=== PATIENT | male | born 1960 | race American Indian/Alaskan Native ===

== ENCOUNTER 2016-09-12 22:13 | Emergency (ER) | payer MEDICAID ==
[2016-09-12] MEDS ORDERED: TYLENOL PO ONE (22:25)
[2016-09-13 06:06] VITALS: BP 155/103
--- NOTE | 2016-09-13 08:10 | Emergency Department Report ---
ED General Adult HPI - General Chief complaint: Extremity Injury, Lower Stated complaint: GOUT Time Seen by Provider: 09/13/16 08:04 Source: patient Mode of arrival: Ambulatory Limitations: No Limitations - History of Present Illness Initial comments: 56 year old male with hx of gout presents with right elbow, wrist, left ankle and toe pain and swelling with fever that started alst night of 102.5. states relief with the tylenol given. states that this feels like regular gout flare up. states joints are swollen, red, tender. Severity scale (0 -10): 5 - Related Data Home Medications Medication Instructions Recorded Confirmed Last Taken Tapentadol HCl [Nucynta] 75 mg PO Q6H PRN 09/26/14 09/26/14 09/25/14 Previous Rx's Medication Instructions Recorded Last Taken Type Promethazine [Phenergan] 25 mg PO Q6H PRN #20 tablet 05/12/14 Unknown Rx Tapentadol HCl [Nucynta] 75 mg PO Q4-6H PRN #35 tab 09/26/14 Unknown Rx Indomethacin Sr (Nf) [Indocin Sr 75 mg PO Q12HR #60 capsule.er 11/15/14 Unknown Rx (Nf)] Colchicine 0.6 mg PO QDAY #30 capsule 01/30/15 Unknown Rx Colchicine [Colcrys] 0.6 mg PO DAILY #30 tablet 03/20/15 Unknown Rx HYDROcodone/APAP 10-325 [[place] 1 each PO Q6HR PRN #15 tablet 03/20/15 Unknown Rx 10-325 mg TAB] Losartan [Cozaar] 50 mg PO QDAY #30 tablet 07/30/15 Unknown Rx Prednisone [predniSONE 5 mg (6-Day 5 mg PO .TAPER #1 tab.ds.pk 07/30/15 Unknown Rx Pack, 21 Tabs)] Colchicine 0.6 mg PO BID #20 capsule 12/23/15 Unknown Rx methylPREDNISolone [Medrol] 4 mg PO DAILY #1 tab.ds.pk 12/23/15 Unknown Rx Colchicine/Probenecid 1 each PO BID #14 tab 06/09/16 Unknown Rx [Probenecid-Colchicine Tab] Ibuprofen [Motrin 800 MG tab] 800 mg PO Q8HR PRN #21 tablet 06/09/16 Unknown Rx Indomethacin [Indocin] 25 mg PO Q8H #90 capsule 06/09/16 Unknown Rx Losartan [Cozaar] 50 mg PO QDAY #30 tablet 06/09/16 Unknown Rx Prednisone [predniSONE 10 mg 10 mg PO .TAPER #1 tab.ds.pk 06/09/16 Unknown Rx (6-Day Pack, 21 Tabs)] Zolpidem [Ambien] 5 mg PO QHS PRN #20 tablet 06/09/16 Unknown Rx Colchicine 0.6 mg PO QDAY #30 tablet 09/13/16 Unknown Rx HYDROcodone/APAP 5-325 [[place] 1 each PO Q6HR PRN #20 tablet 09/13/16 Unknown Rx 5/325] Prednisone [predniSONE 10 mg 10 mg PO .TAPER #1 tab.ds.pk 09/13/16 Unknown Rx (6-Day Pack, 21 Tabs)] Allergies Allergy/AdvReac Type Severity Reaction Status Date / Time No Known Allergies Allergy Verified 06/09/16 07:22 ED Review of Systems ROS: Stated complaint: GOUT Other details as noted in HPI Constitutional: fever. denies: chills Eyes: denies: eye pain, eye discharge, vision change ENT: denies: ear pain, throat pain Respiratory: denies: cough, shortness of breath, wheezing Cardiovascular: denies: chest pain, palpitations Endocrine: no symptoms reported Gastrointestinal: denies: abdominal pain, nausea, diarrhea Genitourinary: denies: urgency, dysuria Musculoskeletal: joint swelling, arthralgia. denies: back pain Skin: denies: rash, lesions Neurological: denies: headache, weakness, paresthesias Psychiatric: denies: anxiety, depression Hematological/Lymphatic: denies: easy bleeding, easy bruising ED Past Medical Hx - Past Medical History Previous Medical History?: Yes Hx Hypertension: Yes Hx of Cancer: Yes (prostate) Hx Arthritis: Yes (gout) Additional medical history: "sleep disorder" - Surgical History Past Surgical History?: Yes Additional Surgical History: right acl repair -1989. radiation / seed implants - Social History Smoking Status: Never Smoker Substance Use Type: Prescribed - Medications Home Medications: Home Medications Medication Instructions Recorded Confirmed Last Taken Type Promethazine [Phenergan] 25 mg PO Q6H PRN #20 tablet 05/12/14 09/26/14 Unknown Rx Tapentadol HCl [Nucynta] 75 mg PO Q4-6H PRN #35 tab 09/26/14 Unknown Rx Tapentadol HCl [Nucynta] 75 mg PO Q6H PRN 09/26/14 09/26/14 09/25/14 History Indomethacin Sr (Nf) [Indocin Sr 75 mg PO Q12HR #60 capsule.er 11/15/14 Unknown Rx (Nf)] Colchicine 0.6 mg PO QDAY #30 capsule 01/30/15 Unknown Rx Colchicine [Colcrys] 0.6 mg PO DAILY #30 tablet 03/20/15 Unknown Rx HYDROcodone/APAP 10-325 [[place] 1 each PO Q6HR PRN #15 tablet 03/20/15 Unknown Rx 10-325 mg TAB] Losartan [Cozaar] 50 mg PO QDAY #30 tablet 07/30/15 Unknown Rx Prednisone [predniSONE 5 mg (6-Day 5 mg PO .TAPER #1 tab.ds.pk 07/30/15 Unknown Rx Pack, 21 Tabs)] Colchicine 0.6 mg PO BID #20 capsule 12/23/15 Unknown Rx methylPREDNISolone [Medrol] 4 mg PO DAILY #1 tab.ds.pk 12/23/15 Unknown Rx Colchicine/Probenecid 1 each PO BID #14 tab 06/09/16 Unknown Rx [Probenecid-Colchicine Tab] Ibuprofen [Motrin 800 MG tab] 800 mg PO Q8HR PRN #21 tablet 06/09/16 Unknown Rx Indomethacin [Indocin] 25 mg PO Q8H #90 capsule 06/09/16 Unknown Rx Losartan [Cozaar] 50 mg PO QDAY #30 tablet 06/09/16 Unknown Rx Prednisone [predniSONE 10 mg 10 mg PO .TAPER #1 tab.ds.pk 06/09/16 Unknown Rx (6-Day Pack, 21 Tabs)] Zolpidem [Ambien] 5 mg PO QHS PRN #20 tablet 06/09/16 Unknown Rx Colchicine 0.6 mg PO QDAY #30 tablet 09/13/16 Unknown Rx HYDROcodone/APAP 5-325 [[place] 1 each PO Q6HR PRN #20 tablet 09/13/16 Unknown Rx 5/325] Prednisone [predniSONE 10 mg 10 mg PO .TAPER #1 tab.ds.pk 09/13/16 Unknown Rx (6-Day Pack, 21 Tabs)] ED Physical Exam - General Limitations: No Limitations General appearance: alert, in no apparent distress - Head Head exam: Present: atraumatic, normocephalic - Eye Eye exam: Present: normal appearance - ENT ENT exam: Present: mucous membranes moist - Neck Neck exam: Present: normal inspection - Respiratory Respiratory exam: Present: normal lung sounds bilaterally. Absent: respiratory distress - Cardiovascular Cardiovascular Exam: Present: regular rate, normal rhythm. Absent: systolic murmur, diastolic murmur, rubs, gallop - GI/Abdominal GI/Abdominal exam: Present: soft, normal bowel sounds - Rectal Rectal exam: Present: deferred - Extremities Exam Extremities exam: Present: normal inspection, other (right wrist, elbow. left ankle and toe are red, swollen, TTP. full rom.) - Back Exam Back exam: Present: normal inspection - Neurological Exam Neurological exam: Present: alert, oriented X3 - Psychiatric Psychiatric exam: Present: normal affect, normal mood - Skin Skin exam: Present: warm, dry, intact, normal color. Absent: rash ED Course Vital Signs 09/12/16 09/13/16 09/13/16 22:21 00:59 06:05 Temperature 102.3 F H 99.2 F 99.0 F Pulse Rate 125 H 97 H 99 H Respiratory 20 18 120 H Rate Blood Pressure 146/104 Blood Pressure 146/104 138/99 155/103 [Left] O2 Sat by Pulse 99 99 100 Oximetry 09/13/16 08:37 Temperature Pulse Rate Respiratory 20 Rate Blood Pressure Blood Pressure [Left] O2 Sat by Pulse Oximetry ED Medical Decision Making - Lab Data Result diagrams: 09/13/16 08:13 09/13/16 08:13 Vital Signs 09/12/16 09/13/16 09/13/16 22:21 00:59 06:05 Temperature 102.3 F H 99.2 F 99.0 F Pulse Rate 125 H 97 H 99 H Respiratory 20 18 120 H Rate Blood Pressure 146/104 Blood Pressure 146/104 138/99 155/103 [Left] O2 Sat by Pulse 99 99 100 Oximetry 09/13/16 08:37 Temperature Pulse Rate Respiratory 20 Rate Blood Pressure Blood Pressure [Left] O2 Sat by Pulse Oximetry Laboratory Results - last 24 hr 09/13/16 09/13/16 08:13 08:13 WBC 11.6 H RBC 4.29 Hgb 12.5 Hct 37.4 MCV 87 MCH 29 MCHC 33 RDW 14.4 Plt Count 259 Lymph % (Auto) 13.4 [place] % (Auto) 10.5 H Eos % (Auto) 0.1 Baso % (Auto) 0.5 Lymph # 1.5 [place] # 1.2 H Eos # 0.0 Baso # 0.1 Seg Neutrophils % 75.5 H Seg Neutrophils # 8.8 H Sodium 136 L Potassium 4.2 Chloride 96.0 L Carbon Dioxide 25 Anion Gap 19 BUN 13 Creatinine 1.3 Estimated GFR > 60 BUN/Creatinine Ratio 10.00 Glucose 129 H Uric Acid 9.2 H Calcium 8.9 - Medical Decision Making patient fever has reduced and hasnt returned since. patient states relief with medication in the ED. fever was abnormally high for gout flare up although all signs including elevated uric acid point to gout. patient to be treated with decadron in the ED with colchicine and prednisone pack as outpatient. given strict return precaution if fever returns or symptoms worsen. patient verbalized understanding. Critical care attestation.: If time is entered above; I have spent that time in minutes in the direct care of this critically ill patient, excluding procedure time. ED Disposition Clinical Impression: Gout flare, Arthralgia Disposition: DISCHARGED TO HOME OR SELFCARE Is pt being admited?: No Does the pt Need Aspirin: No Condition: Good Instructions: Acute Gouty Arthritis (ED) Additional Instructions: take medication as prescribed. return to the ED if symptoms worsen or if unable to reduce temperature to under 101. Prescriptions: Colchicine 0.6 mg PO QDAY #30 tablet HYDROcodone/APAP 5-325 [[place] 5/325] 1 each PO Q6HR PRN #20 tablet PRN Reason: Pain Prednisone [predniSONE 10 mg (6-Day Pack, 21 Tabs)] 10 mg PO .TAPER #1 tab.ds.pk Referrals: PRIMARY CARE, [Primary Care Provider] - 3-5 Days ROSETTA MAGUIRE MD [Staff Physician] - 3-5 Days Time of Disposition: 09:23
[2016-09-13] MEDS ORDERED: ZOFRAN IM ONE (08:18)
[2016-09-13] MEDS ORDERED: MORPHINE IM ONE (08:18)
[2016-09-13 08:31] LABS: Basophils % (Auto) 0.5 % (0.0-1.8); Eosinophils % (Auto) 0.1 % (0.0-4.3); Hematocrit 37.4 % (35.5-45.6); Hemoglobin 12.5 gm/dl (11.8-15.2); Mean Corpuscular HGB Conc 33 % (32-34); Mean Corpuscular Hemoglobin 29 pg (28-32); Mean Corpuscular Volume 87 fl (84-94); Platelet Count 259 K/mm3 (140-440); Red Blood Count 4.29 M/mm3 (3.65-5.03); Red Cell Distribution Width 14.4 % (13.2-15.2); White Blood Count 11.6 K/mm3 (4.5-11.0)
[2016-09-13 08:48] LABS: Anion Gap 19 mmol/L; Blood Urea Nitrogen 13 mg/dL (9-20); Calcium 8.9 mg/dL (8.4-10.2); Carbon Dioxide 25 mmol/L (22-30); Glucose 129 mg/dL (75-100); Potassium 4.2 mmol/L (3.6-5.0); Sodium 136 mmol/L (137-145); Uric Acid 9.2 mg/dL (3.5-7.6)
[2016-09-13] MEDS ORDERED: DECADRON IM ONE (09:24)
== END 2016-09-13 10:03 | disposition home or self-care (01) ==
LOC: ED 22:13
DX: M10.9 Gout, unspecified (principal); I10 Essential (primary) hypertension; Z85.46 Personal history of malignant neoplasm of prostate
CPT/HCPCS: 36415; 80048; 84550; 85025; 96372; 99283; J1100; J2270; J2405

== ENCOUNTER 2016-09-21 08:26 | Emergency (ER) | payer MEDICAID ==
[2016-09-21 08:40] VITALS: BP 148/108
[2016-09-21] MEDS ORDERED: ZOFRAN ODT PO ONE (09:25)
[2016-09-21] MEDS ORDERED: MORPHINE IM ONE (09:26)
[2016-09-21] MEDS ORDERED: TORADOL IM ONE (09:26)
--- NOTE | 2016-09-21 10:28 | Emergency Department Report ---
ED Extremity Problem HPI - General Chief complaint: Extremity Injury, Upper Stated complaint: GOUT Time Seen by Provider: 09/21/16 09:00 Source: patient Mode of arrival: Ambulatory Limitations: No Limitations - History of Present Illness Initial comments: PT states he was seen 09/13/16 for same gout flare. PT states he finished his RX medication but he has not improved. PT does admit that he did not fill his colchine because his insurance would not fill it. PT states he still had some colchine pills at home and he has been taking them. 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 PT states he is no longer on Nucynta because his insurance wont cover it. PT asking for Prednisone 20 mg pills and RX for at least 20 Hope or Percocet pills. PT reports pain to R wrist and elbow and L knee and ankle. PT states he was told not to take NSAIDs on his last visit. PT states he thinks his diet triggered this attack but he has been more careful on what he has been eating and still no improvement. MD Complaint: joint swelling, joint paint -: Gradual, week(s) (over 1 week ago ) Location: left, right, upper extremity, lower extremity, elbow, knee History of Same: Yes -: No fever (pt states his fever resolved ) Severity scale (0 -10): 10 Quality: constant Consistency: constant (throbbing ) Improves with: nothing Worsens with: weight bearing - Related Data Previous Rx's Medication Instructions Recorded Last Taken Type Losartan [Cozaar] 50 mg PO QDAY #30 tablet 07/30/15 Unknown Rx Colchicine 0.6 mg PO QDAY #30 tablet 09/13/16 Unknown Rx predniSONE [Deltasone] 20 mg PO QDAY #5 tablet 09/21/16 Unknown Rx traMADol [Ultram] 50 mg PO Q6HR PRN #10 tablet 09/21/16 Unknown Rx Allergies Allergy/AdvReac Type Severity Reaction Status Date / Time No Known Allergies Allergy Verified 09/21/16 08:35 ED Review of Systems ROS: Stated complaint: GOUT Other details as noted in HPI Comment: All other systems reviewed and negative Constitutional: denies: fever, weakness Cardiovascular: denies: chest pain Musculoskeletal: as per HPI, joint swelling, arthralgia Skin: denies: change in color ED Past Medical Hx - Past Medical History Hx Hypertension: Yes Hx Arthritis: Yes (gout) Additional medical history: "sleep disorder" - Surgical History Additional Surgical History: right acl repair -1989. radiation / seed implants - Social History Smoking Status: Never Smoker Substance Use Type: None - Medications Home Medications: Home Medications Medication Instructions Recorded Confirmed Last Taken Type Losartan [Cozaar] 50 mg PO QDAY #30 tablet 07/30/15 Unknown Rx Colchicine 0.6 mg PO QDAY #30 tablet 09/13/16 Unknown Rx predniSONE [Deltasone] 20 mg PO QDAY #5 tablet 09/21/16 Unknown Rx traMADol [Ultram] 50 mg PO Q6HR PRN #10 tablet 09/21/16 Unknown Rx ED Physical Exam - General Limitations: No Limitations General appearance: alert, in no apparent distress - Head Head exam: Present: atraumatic, normocephalic - ENT ENT exam: Present: normal exam, normal external ear exam - Neck Neck exam: Present: normal inspection - Respiratory Respiratory exam: Present: normal lung sounds bilaterally. Absent: respiratory distress - Cardiovascular Cardiovascular Exam: Present: regular rate, normal rhythm - Rectal Rectal exam: Present: deferred - Extremities Exam Extremities exam: Present: tenderness, normal capillary refill, joint swelling, other (R wrist swollen and tender. pt reports pain to R elbow. PT has pain to L knee and L ankle. + swelling, no erythema) - Back Exam Back exam: Present: normal inspection - Neurological Exam Neurological exam: Present: alert, oriented X3 - Psychiatric Psychiatric exam: Present: normal affect, normal mood - Skin Skin exam: Present: warm, dry, other (L ant knee with surgical scar) ED Course Vital Signs 09/21/16 08:36 Temperature 98.5 F Pulse Rate 95 H Respiratory 20 Rate Blood Pressure 148/108 O2 Sat by Pulse 97 Oximetry - Reevaluation(s) Reevaluation #1: 09/21/16 10:36 PT states pain improved sp IM medications. PT states his R wrist is still sore. - Pulse Oximetry Interpretation Digit-Finger Initial Pulse Oximetry Readin Actions Taken: none ED Medical Decision Making - Differential Diagnosis OA, gout, non compliance Critical care attestation.: If time is entered above; I have spent that time in minutes in the direct care of this critically ill patient, excluding procedure time. ED Disposition Clinical Impression: Gout flare Qualifiers: Gout site: multiple sites Gout etiology: unspecified cause Qualified Code(s): M10.9 - Gout, unspecified Hypertension Qualifiers: Hypertension type: essential hypertension Qualified Code(s): I10 - Essential ( primary) hypertension Disposition: DISCHARGED TO HOME OR SELFCARE Is pt being admited?: No Does the pt Need Aspirin: No Condition: Stable Instructions: Acute Gouty Arthritis (ED), Hypertension (ED) Additional Instructions: Take your bp medication as prescribed Have your PCP recheck your bp in the next 3-5 days No driving or ETOH after taking Ultram Prescriptions: predniSONE [Deltasone] 20 mg PO QDAY #5 tablet traMADol [Ultram] 50 mg PO Q6HR PRN #10 tablet PRN Reason: Pain Referrals: PRIMARY CARE, [Primary Care Provider] - 3-5 Days Time of Disposition: 10:43
== END 2016-09-21 10:52 | disposition home or self-care (01) ==
LOC: ED 08:26
DX: M10.9 Gout, unspecified (principal); I10 Essential (primary) hypertension; M25.531 Pain in right wrist; M25.562 Pain in left knee; M25.572 Pain in left ankle and joints of left foot; M25.521 Pain in right elbow; Z98.890 Other specified postprocedural states
CPT/HCPCS: 96372; 99282; J1885; J2270; J2930; Q0162

== ENCOUNTER 2017-01-11 05:39 | Emergency (ER) | payer MEDICAID ==
[2017-01-11 06:52] LABS: Basophils % (Auto) 0.4 % (0.0-1.8); Eosinophils % (Auto) 3.7 % (0.0-4.3); Hematocrit 42.7 % (35.5-45.6); Mean Corpuscular HGB Conc 33 % (32-34); Mean Corpuscular Hemoglobin 29 pg (28-32); Mean Corpuscular Volume 90 fl (84-94); Platelet Count 288 K/mm3 (140-440); Red Blood Count 4.75 M/mm3 (3.65-5.03)
[2017-01-11 06:57] LABS: Anion Gap 17 mmol/L; BUN/Creatinine Ratio 10.76; Blood Urea Nitrogen 14 mg/dL (9-20); Calcium 8.8 mg/dL (8.4-10.2); Carbon Dioxide 26 mmol/L (22-30); Chloride 102.4 mmol/L (98-107); Glucose 107 mg/dL (75-100); Potassium 3.9 mmol/L (3.6-5.0); Sodium 141 mmol/L (137-145)
--- NOTE | 2017-01-11 08:29 | Emergency Department Report ---
ED Extremity Problem HPI - General Chief complaint: Extremity Problem,Nontraumatic Stated complaint: KNEE PAIN Time Seen by Provider: 01/11/17 07:48 Source: patient Mode of arrival: Ambulatory Limitations: No Limitations - History of Present Illness Initial comments: 56-year-old male past medical history recurrent episodes of gout, former smoker , COPD, hypertension presents with complaint of 2 weeks of right knee pain classic of his gouty symptoms. Patient states he has taken colchicine in the past. Also has been on prednisone previously. Has not been on any medicines in the last week for this right-sided knee pain. Patient is ambulatory but states that moving his right knee is very painful. Patient is visibly ranging his right knee up and down on examination bed but states that it is hurting him. Patient also states incidentally that today he feels slightly wheezy, ran out of his albuterol inhaler. Patient is accompanied by his . MD Complaint: extremity pain (right knee pain and swelling for 2 weeks) Onset/Timin -: week(s) Location: right History of Same: Yes Severity scale (0 -10): 8 Quality: sharp Consistency: constant Improves with: immobilization, elevation Worsens with: weight bearing, walking, palpation - Related Data Previous Rx's Medication Instructions Recorded Last Taken Type Losartan [Cozaar] 50 mg PO QDAY #30 tablet 07/30/15 Unknown Rx Colchicine 0.6 mg PO QDAY #30 tablet 09/13/16 Unknown Rx predniSONE [Deltasone] 20 mg PO QDAY #5 tablet 09/21/16 Unknown Rx traMADol [Ultram] 50 mg PO Q6HR PRN #10 tablet 09/21/16 Unknown Rx ALBUTEROL Inhaler [ProAir HFA 1 puff IH Q4H PRN #1 inha 01/11/17 Unknown Rx Inhaler] HYDROcodone/APAP 5-325 [[place] 1 each PO Q8H PRN #14 tablet 01/11/17 Unknown Rx 5/325] Naproxen [Naprosyn TAB] 500 mg PO BID PRN #25 tablet 01/11/17 Unknown Rx Prednisone [predniSONE 10 mg 10 mg PO .TAPER #1 tab.ds.pk 01/11/17 Unknown Rx (6-Day Pack, 21 Tabs)] Allergies Allergy/AdvReac Type Severity Reaction Status Date / Time No Known Allergies Allergy Verified 09/21/16 08:35 ED Review of Systems ROS: Stated complaint: KNEE PAIN Other details as noted in HPI Constitutional: denies: chills, fever Eyes: denies: eye pain, eye discharge, vision change ENT: denies: ear pain, throat pain Respiratory: denies: cough, shortness of breath, wheezing Cardiovascular: denies: chest pain, palpitations Endocrine: no symptoms reported Gastrointestinal: denies: abdominal pain, nausea, diarrhea Genitourinary: denies: urgency, dysuria Musculoskeletal: denies: back pain, joint swelling, arthralgia Skin: denies: rash, lesions Neurological: denies: headache, weakness, paresthesias Psychiatric: denies: anxiety, depression Hematological/Lymphatic: denies: easy bleeding, easy bruising ED Past Medical Hx - Past Medical History Previous Medical History?: Yes Hx Hypertension: Yes Hx Arthritis: Yes (gout) Additional medical history: "sleep disorder" - Surgical History Past Surgical History?: Yes Additional Surgical History: right acl repair -1989. radiation / seed implants - Social History Smoking Status: Never Smoker Substance Use Type: None - Medications Home Medications: Home Medications Medication Instructions Recorded Confirmed Last Taken Type Losartan [Cozaar] 50 mg PO QDAY #30 tablet 07/30/15 Unknown Rx Colchicine 0.6 mg PO QDAY #30 tablet 09/13/16 Unknown Rx predniSONE [Deltasone] 20 mg PO QDAY #5 tablet 09/21/16 Unknown Rx traMADol [Ultram] 50 mg PO Q6HR PRN #10 tablet 09/21/16 Unknown Rx ALBUTEROL Inhaler [ProAir HFA 1 puff IH Q4H PRN #1 inha 01/11/17 Unknown Rx Inhaler] HYDROcodone/APAP 5-325 [[place] 1 each PO Q8H PRN #14 tablet 01/11/17 Unknown Rx 5/325] Naproxen [Naprosyn TAB] 500 mg PO BID PRN #25 tablet 01/11/17 Unknown Rx Prednisone [predniSONE 10 mg 10 mg PO .TAPER #1 tab.ds.pk 01/11/17 Unknown Rx (6-Day Pack, 21 Tabs)] ED Physical Exam - General Limitations: No Limitations General appearance: alert, in no apparent distress - Head Head exam: Present: atraumatic, normocephalic - Eye Eye exam: Present: normal appearance, PERRL, EOMI - ENT ENT exam: Present: mucous membranes moist - Neck Neck exam: Present: normal inspection - Respiratory Respiratory exam: Present: wheezes (mild wheezing on auscultation bilaterally). Absent: respiratory distress - Cardiovascular Cardiovascular Exam: Present: regular rate, normal rhythm. Absent: systolic murmur, diastolic murmur, rubs, gallop - GI/Abdominal GI/Abdominal exam: Present: soft, normal bowel sounds - Rectal Rectal exam: Present: deferred - Extremities Exam Extremities exam: Present: normal inspection - Expanded Lower Extremity Exam Right Hip exam: Present: normal inspection, full ROM Upper Leg exam: Present: normal inspection, full ROM Knee exam: Present: normal inspection, full ROM (patient has difficulty fully extending right knee but is able to range his right knee approximately 34 degrees including flexion and extension), tenderness (mild tenderness on palpation of right side lateral knee), swelling (mild swelling of right knee joint) Lower Leg exam: Present: normal inspection, full ROM Ankle exam: Present: normal inspection, full ROM Foot/Toe exam: Present: normal inspection, full ROM Neuro vascular tendon exam: Present: no vascular compromise (distal dorsalis pedis and posterior tibial pulses are intact on palpation) Gait: Positive: antalgic (patient has significant pain while walking) 1 - Mild tenderness and swelling here and no visible erythema - Back Exam Back exam: Present: normal inspection, full ROM - Neurological Exam Neurological exam: Present: alert, oriented X3, CN II-XII intact, abnormal gait (antalgic gait) - Psychiatric Psychiatric exam: Present: normal affect, normal mood - Skin Skin exam: Present: warm, dry, intact, normal color. Absent: rash ED Course Vital Signs 01/11/17 01/11/17 01/11/17 06:17 09:20 09:26 Temperature 98.2 F Pulse Rate 79 Pulse Rate [ 68 68 Anterior Bilateral Throughout] Respiratory 20 Rate Respiratory 14 14 Rate [Anterior Bilateral Throughout] Blood Pressure 156/105 O2 Sat by Pulse 98 Oximetry ED Medical Decision Making - Lab Data Result diagrams: 01/11/17 06:28 01/11/17 06:28 - Medical Decision Making a/p: Right knee gout flare, reactive airway disease 1- x-ray shows chronic degenerative changes right knee 2- I will refer patient to orthopedics 3- prednisone course, naproxen when necessary, [place] when necessary 4- RICE Therapy. Patient is ambulatory upon discharge Critical care attestation.: If time is entered above; I have spent that time in minutes in the direct care of this critically ill patient, excluding procedure time. ED Disposition Clinical Impression: Gout flare Qualifiers: Gout site: knee Gout etiology: unspecified cause Laterality: right Qualified Code(s): M10.9 - Gout, unspecified Disposition: TO HOME OR SELFCARE Is pt being admited?: No Does the pt Need Aspirin: No Condition: Stable Instructions: Acute Gouty Arthritis (ED), RICE Therapy (ED) Prescriptions: ALBUTEROL Inhaler [ProAir HFA Inhaler] 1 puff IH Q4H PRN #1 inha PRN Reason: Wheezing HYDROcodone/APAP 5-325 [[place] 5/325] 1 each PO Q8H PRN #14 tablet PRN Reason: Pain Naproxen [Naprosyn TAB] 500 mg PO BID PRN #25 tablet PRN Reason: Pain Prednisone [predniSONE 10 mg (6-Day Pack, 21 Tabs)] 10 mg PO .TAPER #1 tab.ds.pk Referrals: NADIA GARCIA MD [Staff Physician] - 3-5 Days [facility] [Outside] - 3-5 Days KEMAL DUNLAP MD [Staff Physician] - 3-5 Days Forms: Accompanied Note Time of Disposition: 10:30
--- NOTE | 2017-01-11 08:41 | XRay Report ---
Right knee 3 views: History: Worsening right knee pain. Findings: Narrowing of medial lateral and patellofemoral compartment knee joint. Sclerotic adjacent articular surfaces with peripheral osteophytes suggesting degenerative changes. No fracture. Suspicion of minimal fluid in the suprapatellar bursa. Impression: Tricompartment degenerative changes. Suspicion of fluid in the suprapatellar bursa.
[2017-01-11] MEDS ORDERED: NORCO 5/325 PO ONE (08:44)
[2017-01-11] MEDS ORDERED: DELTASONE PO ONE (08:44)
[2017-01-11] MEDS ORDERED: DUONEB 0.5 MG-3 MG/3 ML SOLN IH ONE (08:44)
[2017-01-11 10:49] VITALS: BP 142/90
== END 2017-01-11 10:47 | disposition home or self-care (01) ==
LOC: ED 05:39
DX: M10.9 Gout, unspecified (principal); I10 Essential (primary) hypertension; J44.9 Chronic obstructive pulmonary disease, unspecified
CPT/HCPCS: 36415; 73562; 80048; 85025; 94640; 99284; J7512

== ENCOUNTER 2017-01-29 05:24 | Emergency (ER) | payer MEDICAID ==
--- NOTE | 2017-01-29 07:30 | XRay Report ---
ROUTINE CHEST, TWO VIEWS: HISTORY: Cough. The trachea, heart, mediastinal contour, lung bernard and bony thorax are unremarkable. IMPRESSION: Unremarkable chest x-ray.
[2017-01-29] MEDS ORDERED: NORCO 5/325 PO ONE ×2 (11:35→13:05)
[2017-01-29] MEDS ORDERED: DELTASONE PO ONE (11:36)
--- NOTE | 2017-01-29 11:36 | Emergency Department Report ---
ED Extremity Problem HPI - General Chief complaint: Upper Respiratory Infection Stated complaint: LT HAND SWOLLEN W/PAIN/COUGH/CONGESTION/ Time Seen by Provider: 01/29/17 11:25 Source: patient Mode of arrival: Ambulatory Limitations: No Limitations - History of Present Illness Initial comments: 56-year-old male past medical history gout, hypertension presents with complaint of 3 days of left-sided hand/wrist pain and swelling. Patient states that it is somewhat difficult to move his left wrist due to the pain. States that he has had episodes of gout in the past which are consistent with his current presentation. Patient states that he ran out of colchicine and also incidentally states that he ran out of his blood pressure medicine 2 days ago. Incidentally complaining of 2 weeks of intermittent cough. Denies any significant fever or chills. Denies any significant shortness of breath or chest pain. Speaking in full sentences nontoxic appearing. MD Complaint: extremity pain Onset/Timin -: days(s) Location: left History of Same: Yes Severity scale (0 -10): 10 - Related Data Previous Rx's Medication Instructions Recorded Last Taken Type predniSONE [Deltasone] 20 mg PO QDAY #5 tablet 09/21/16 Unknown Rx traMADol [Ultram] 50 mg PO Q6HR PRN #10 tablet 09/21/16 Unknown Rx ALBUTEROL Inhaler [ProAir HFA 1 puff IH Q4H PRN #1 inha 01/29/17 Unknown Rx Inhaler] Colchicine 0.6 mg PO QDAY #30 tablet 01/29/17 Unknown Rx HYDROcodone/APAP 5-325 [[place] 1 each PO Q8H PRN #14 tablet 01/29/17 Unknown Rx 5-325 mg TAB] Losartan [Cozaar] 50 mg PO QDAY #30 tablet 01/29/17 Unknown Rx Naproxen [Naprosyn TAB] 500 mg PO BID PRN #25 tablet 01/29/17 Unknown Rx Prednisone [predniSONE 10 mg 10 mg PO .TAPER #1 tab.ds.pk 01/29/17 Unknown Rx (6-Day Pack, 21 Tabs)] Allergies Allergy/AdvReac Type Severity Reaction Status Date / Time No Known Allergies Allergy Verified 09/21/16 08:35 ED Review of Systems ROS: Stated complaint: LT HAND SWOLLEN W/PAIN/COUGH/CONGESTION/ Other details as noted in HPI Constitutional: denies: chills, fever Eyes: denies: eye pain, eye discharge, vision change ENT: denies: ear pain, throat pain Respiratory: cough. denies: shortness of breath, wheezing Cardiovascular: denies: chest pain, palpitations Endocrine: no symptoms reported Gastrointestinal: denies: abdominal pain, nausea, diarrhea Genitourinary: denies: urgency, dysuria Musculoskeletal: as per HPI, joint swelling (left wrist), arthralgia. denies: back pain Skin: change in color (visible erythema overlying left forearm and wrist). denies: rash, lesions Neurological: denies: headache, weakness, paresthesias Psychiatric: denies: anxiety, depression Hematological/Lymphatic: denies: easy bleeding, easy bruising ED Past Medical Hx - Past Medical History Previous Medical History?: Yes Hx Hypertension: Yes Hx Arthritis: Yes (gout) Additional medical history: "sleep disorder" - Surgical History Past Surgical History?: Yes Additional Surgical History: right acl repair -1989. radiation / seed implants - Social History Smoking Status: Former Smoker Substance Use Type: None - Medications Home Medications: Home Medications Medication Instructions Recorded Confirmed Last Taken Type predniSONE [Deltasone] 20 mg PO QDAY #5 tablet 09/21/16 Unknown Rx traMADol [Ultram] 50 mg PO Q6HR PRN #10 tablet 09/21/16 Unknown Rx ALBUTEROL Inhaler [ProAir HFA 1 puff IH Q4H PRN #1 inha 01/29/17 Unknown Rx Inhaler] Colchicine 0.6 mg PO QDAY #30 tablet 01/29/17 Unknown Rx HYDROcodone/APAP 5-325 [[place] 1 each PO Q8H PRN #14 tablet 01/29/17 Unknown Rx 5-325 mg TAB] Losartan [Cozaar] 50 mg PO QDAY #30 tablet 01/29/17 Unknown Rx Naproxen [Naprosyn TAB] 500 mg PO BID PRN #25 tablet 01/29/17 Unknown Rx Prednisone [predniSONE 10 mg 10 mg PO .TAPER #1 tab.ds.pk 01/29/17 Unknown Rx (6-Day Pack, 21 Tabs)] ED Physical Exam - General Limitations: No Limitations General appearance: alert, in no apparent distress - Head Head exam: Present: atraumatic, normocephalic - Eye Eye exam: Present: normal appearance, PERRL, EOMI - ENT ENT exam: Present: mucous membranes moist - Neck Neck exam: Present: normal inspection, full ROM - Respiratory Respiratory exam: Present: normal lung sounds bilaterally. Absent: respiratory distress - Cardiovascular Cardiovascular Exam: Present: regular rate, normal rhythm. Absent: systolic murmur, diastolic murmur, rubs, gallop - GI/Abdominal GI/Abdominal exam: Present: soft, normal bowel sounds - Rectal Rectal exam: Present: deferred - Extremities Exam Extremities exam: Present: normal inspection, full ROM, tenderness - Expanded Upper Extremity Exam Left Shoulder Exam: Present: normal inspection, full ROM Upper Arm exam: Present: normal inspection, full ROM Elbow exam: Present: normal inspection, full ROM Forearm Wrist exam: Present: normal inspection, full ROM (patient is able to passively flex and extend his left wrist, experiences some pain with this but range of motion is intact on exam arm pronation and supination intact) Hand Wrist exam: Present: normal inspection, full ROM Neuro motor exam: Present: wrist extension intact, thumb opposition intact, thumb IP flexion intact, thumb adduction intact, fingers 2-5 abduction intact Vascular: Present: normal capillary refill (capillary refill less than one second all fingers. Range of motion MCPs DIPs and PIPs intact. Distal sensation intact to palpation and proprioception.), radial pulse (palpable strong radial pulse) - Back Exam Back exam: Present: normal inspection - Neurological Exam Neurological exam: Present: alert, oriented X3, CN II-XII intact, normal gait - Psychiatric Psychiatric exam: Present: normal affect, normal mood - Skin Skin exam: Present: warm, dry, intact, normal color. Absent: rash ED Course Vital Signs 01/29/17 01/29/17 01/29/17 05:37 09:51 11:11 Temperature 99.7 F H 98.1 F 98.1 F Pulse Rate 109 H 100 H 78 Respiratory 20 20 18 Rate Blood Pressure 154/120 138/111 Blood Pressure 146/91 [Right] O2 Sat by Pulse 94 97 99 Oximetry ED Medical Decision Making - Lab Data Result diagrams: 01/29/17 12:51 01/29/17 12:51 - Medical Decision Making A/P: Gout flare left wrist, URI, cough 1-as per patient's history patient states that his current symptoms are consistent with prior episodes of gout flares. As patient does exhibit some erythema of left forearm I will marked borders and also treat patient empirically for left forearm cellulitis. Patient's vital signs are stable and has no white count, will give patient 48 hour wound check and I specifically advised the patient to return if he experiences significant fevers chills or increased pain despite use of anti-inflammatories and antibiotics. 2-x-ray consistent with arthritic changes area and upper extremity duplex negative for DVT 3-BMP within normal limits. As per [email or web address] recommendations on gout treatment patient is out of the window for acute administration of colchicine, will treat with prednisone Dosepak [place] and naproxen when necessary 4- I will prescribe patient's losartan as he ran out of his medicine 2 days ago. Albuterol when necessary, Robitussin when necessary, chest x-ray is negative. Patient likely has URI Critical care attestation.: If time is entered above; I have spent that time in minutes in the direct care of this critically ill patient, excluding procedure time. ED Disposition Clinical Impression: Gout flare Qualifiers: Gout site: wrist Gout etiology: unspecified cause Laterality: left Qualified Code(s): M10.9 - Gout, unspecified Upper respiratory tract infection Qualifiers: URI type: unspecified viral URI Qualified Code(s): J06.9 - Acute upper respiratory infection, unspecified Disposition: TO HOME OR SELFCARE Is pt being admited?: No Does the pt Need Aspirin: No Condition: Stable Instructions: Acute Gouty Arthritis (ED), Upper Respiratory Infection (ED), Cold Symptoms (ED), RICE Therapy (ED) Additional Instructions: Patient advised to return to the ED in 48 hours for check of left wrist. Borders of erythema marked before discharge. Prescriptions: ALBUTEROL Inhaler [ProAir HFA Inhaler] 1 puff IH Q4H PRN #1 inha PRN Reason: Wheezing Colchicine 0.6 mg PO QDAY #30 tablet HYDROcodone/APAP 5-325 [[place] 5-325 mg TAB] 1 each PO Q8H PRN #14 tablet PRN Reason: Pain Losartan [Cozaar] 50 mg PO QDAY #30 tablet Naproxen [Naprosyn TAB] 500 mg PO BID PRN #25 tablet PRN Reason: Pain Prednisone [predniSONE 10 mg (6-Day Pack, 21 Tabs)] 10 mg PO .TAPER #1 tab.ds.pk Referrals: DEANGELO ASTUDILLO MD [Referring] - 3-5 Days NADIA GARCIA MD [Staff Physician] - 3-5 Days Forms: Accompanied Note, Work/School Release Form(ED) Time of Disposition: 14:49
--- NOTE | 2017-01-29 13:13 | XRay Report ---
Left wrist 3 views: History: Significant left wrist swelling. Findings: Mild arthritic changes radiocarpal joint and first carpometacarpal joint. No fracture, dislocation or soft tissue calcification. Impression: No evidence of acute fracture. Mild arthritic changes as detailed above.
[2017-01-29 13:22] LABS: Basophils % (Auto) 0.4 % (0.0-1.8); Eosinophils % (Auto) 0.2 % (0.0-4.3); Hematocrit 41.5 % (35.5-45.6); Hemoglobin 13.7 gm/dl (11.8-15.2); Mean Corpuscular HGB Conc 33 % (32-34); Mean Corpuscular Hemoglobin 29 pg (28-32); Mean Corpuscular Volume 88 fl (84-94); Platelet Count 248 K/mm3 (140-440); Red Cell Distribution Width 14.9 % (13.2-15.2); White Blood Count 10.2 K/mm3 (4.5-11.0)
[2017-01-29 13:24] LABS: Anion Gap 17 mmol/L; BUN/Creatinine Ratio 7.69; Blood Urea Nitrogen 10 mg/dL (9-20); Calcium 8.8 mg/dL (8.4-10.2); Carbon Dioxide 26 mmol/L (22-30); Chloride 99.6 mmol/L (98-107); Glucose 107 mg/dL (75-100); Potassium 3.7 mmol/L (3.6-5.0); Sodium 139 mmol/L (137-145)
[2017-01-29] MEDS ORDERED: TORADOL IM ONE (13:37)
[2017-01-29 15:17] VITALS: BP 140/78
--- NOTE | 2017-01-30 11:04 | Vascular Lab Report ---
LEFT UPPER EXTREMITY VENOUS DUPLEX: REASON FOR EXAM: Pain and swelling of the left upper extremity COMMENTS ON THE LEFT: All arm veins visualized are freely compressible without evidence of internal echogenicity. The subclavian and internal jugular veins are free of thrombus. Flow is spontaneous and phasic throughout. COMMENTS ON THE RIGHT: The subclavian and internal jugular veins are free of thrombus. IMPRESSION: No evidence of acute or chronic deep venous thrombosis in the left upper extremity.
== END 2017-01-29 15:16 | disposition home or self-care (01) ==
LOC: ED 05:24
DX: M10.9 Gout, unspecified (principal); J06.9 Acute upper respiratory infection, unspecified; I10 Essential (primary) hypertension; Z87.891 Personal history of nicotine dependence
CPT/HCPCS: 36415; 71020; 73110; 80048; 82550; 85025; 93971; 96372; 99284; J1885; J7512

== ENCOUNTER 2017-05-09 09:03 | Emergency (ER) | payer MEDICAID ==
[2017-05-09] MEDS ORDERED: CATAPRES PO ONE (11:42)
[2017-05-09 12:04] LABS: Basophils % (Auto) 0.4 % (0.0-1.8); Eosinophils % (Auto) 0.3 % (0.0-4.3); Hematocrit 39.7 % (35.5-45.6); Hemoglobin 13.6 gm/dl (11.8-15.2); Mean Corpuscular HGB Conc 34 % (32-34); Mean Corpuscular Hemoglobin 30 pg (28-32); Mean Corpuscular Volume 89 fl (84-94); Platelet Count 269 K/mm3 (140-440); Red Blood Count 4.46 M/mm3 (3.65-5.03); Red Cell Distribution Width 15.1 % (13.2-15.2); White Blood Count 8.9 K/mm3 (4.5-11.0)
[2017-05-09 12:21] LABS: Anion Gap 16 mmol/L; BUN/Creatinine Ratio 12; Blood Urea Nitrogen 12 mg/dL (9-20); Calcium 8.8 mg/dL (8.4-10.2); Carbon Dioxide 28 mmol/L (22-30); Chloride 99.2 mmol/L (98-107); Glucose 103 mg/dL (75-100); Potassium 4.2 mmol/L (3.6-5.0); Sodium 139 mmol/L (137-145)
[2017-05-09] MEDS ORDERED: DECADRON IM ONE (12:32)
[2017-05-09] MEDS ORDERED: DILAUDID IM ONE (12:32)
[2017-05-09] MEDS ORDERED: TORADOL IM ONE (12:32)
[2017-05-09 13:08] VITALS: BP 125/87
[2017-05-09] MEDS ORDERED: COLCRYS PO ONE (13:34)
--- NOTE | 2017-05-09 14:36 | Emergency Department Report ---
ED Extremity Problem HPI - General Chief complaint: Pain General Stated complaint: RIGHT HAND PAIN, KNEE AND ANKLE PAIN Time Seen by Provider: 05/09/17 11:38 Source: patient Mode of arrival: Ambulatory Limitations: No Limitations - History of Present Illness Initial comments: 57-year-old male the past with a history of gout and hypertension presents to the hospital pain of right arm pain secondary to gout and needing a refill his medication. Patient has been out of his blood pressure medication times 3 days as well as his gout medication. Complains of 8/10 pain and swelling from his mid forearm down to his right hand. No trauma reported. Symptoms of the past secondary to gout. He shows complaints of bilateral knee and ankle pain. No reports of fever, headaches, chest pain, shortness of breath. Severity scale (0 -10): 8 - Related Data Previous Rx's Medication Instructions Recorded Last Taken Type traMADol [Ultram] 50 mg PO Q6HR PRN #10 tablet 09/21/16 Unknown Rx HYDROcodone/APAP 5-325 [[place] 1 each PO Q8H PRN #14 tablet 01/29/17 Unknown Rx 5-325 mg TAB] ALBUTEROL Inhaler [ProAir HFA 1 puff IH Q4H PRN #1 inha 05/09/17 Unknown Rx Inhaler] Colchicine 0.6 mg PO QDAY #30 tablet 05/09/17 Unknown Rx Losartan [Cozaar] 50 mg PO QDAY #30 tablet 05/09/17 Unknown Rx Naproxen [Naprosyn TAB] 500 mg PO BID PRN #25 tablet 05/09/17 Unknown Rx Oxycodone HCl/Acetaminophen 1 each PO Q6HR PRN #20 tablet 05/09/17 Unknown Rx [Percocet 7.5/325 mg] Prednisone [predniSONE 10 mg 10 mg PO .TAPER #1 tab.ds.pk 05/09/17 Unknown Rx (6-Day Pack, 21 Tabs)] Allergies Allergy/AdvReac Type Severity Reaction Status Date / Time No Known Allergies Allergy Verified 09/21/16 08:35 ED Review of Systems ROS: Stated complaint: RIGHT HAND PAIN, KNEE AND ANKLE PAIN Other details as noted in HPI Comment: All other systems reviewed and negative Other: Constitutional: No fevers chills or weight loss Eyes: No eye pain visual changes or discharge ENT: No ear pain or throat pain Neck: Denies pain Respiratory: Denies cough wheezing shortness of breath Cardiovascular: Denies chest pain, palpitations, syncope GI: Denies abdominal pain, nausea, vomiting, diarrhea : Denies dysuria Musculoskeletal: as per hpi Skin: Denies rash, lesions, erythema Neurologic: Denies headache, numbness, weakness Psychiatric: Denies suicidal ideation, hallucinations ED Past Medical Hx - Past Medical History Previous Medical History?: Yes Hx Hypertension: Yes Hx Arthritis: Yes (gout) Additional medical history: "sleep disorder" - Surgical History Past Surgical History?: Yes Additional Surgical History: right acl repair -1989. radiation / seed implants - Social History Smoking Status: Former Smoker Substance Use Type: Prescribed - Medications Home Medications: Home Medications Medication Instructions Recorded Confirmed Last Taken Type traMADol [Ultram] 50 mg PO Q6HR PRN #10 tablet 09/21/16 05/09/17 Unknown Rx HYDROcodone/APAP 5-325 [[place] 1 each PO Q8H PRN #14 tablet 01/29/17 05/09/17 Unknown Rx 5-325 mg TAB] ALBUTEROL Inhaler [ProAir HFA 1 puff IH Q4H PRN #1 inha 05/09/17 Unknown Rx Inhaler] Colchicine 0.6 mg PO QDAY #30 tablet 05/09/17 Unknown Rx Losartan [Cozaar] 50 mg PO QDAY #30 tablet 05/09/17 Unknown Rx Naproxen [Naprosyn TAB] 500 mg PO BID PRN #25 tablet 05/09/17 Unknown Rx Oxycodone HCl/Acetaminophen 1 each PO Q6HR PRN #20 tablet 05/09/17 Unknown Rx [Percocet 7.5/325 mg] Prednisone [predniSONE 10 mg 10 mg PO .TAPER #1 tab.ds.pk 05/09/17 Unknown Rx (6-Day Pack, 21 Tabs)] ED Physical Exam - General Limitations: No Limitations - Other Other exam information: General: No limitations, patient is alert in no acute distress Head exam: Atraumatic, normocephalic Eyes exam: Normal appearance ENT: Moist mucous membrane, normal oropharynx Neck exam: Normal inspection, full range of motion, no meningismus nontender Respiratory exam: Clear to auscultation bilateral, no wheezes, rales, crackles Cardiovascular: Normal rate and rhythm, normal heart sounds Abdomen: Soft, nondistended, and nontender, with normal bowel sounds, no rebound, or guarding Extremity: Diffuse swelling to right hand, wrist, distal forearm with mild warmth and tenderness. No erythema. No swelling or significant pain with movement of the extremities Back: Normal Inspection, full range of motion, no tenderness Neurologic: Alert, oriented x3, cranial nerves intact, no motor or sensory deficit Psychiatric: normal affect, normal mood Skin: Warm, dry, intact ED Course Vital Signs 05/09/17 05/09/17 05/09/17 09:19 11:41 11:48 Temperature 98.2 F Pulse Rate 71 84 84 Respiratory 18 16 Rate Blood Pressure 174/115 192/112 Blood Pressure 192/112 [Left] O2 Sat by Pulse 98 95 Oximetry 05/09/17 13:03 Temperature Pulse Rate 84 Respiratory 16 Rate Blood Pressure Blood Pressure 125/87 [Left] O2 Sat by Pulse 95 Oximetry - Reevaluation(s) Reevaluation #1: 05/09/17 14:30 BP and pain improved prior to discharge ED Medical Decision Making - Lab Data Result diagrams: 05/09/17 11:50 05/09/17 11:50 Lab Results 05/09/17 05/09/17 Range/Units 11:50 11:50 WBC 8.9 (4.5-11.0) K/mm3 RBC 4.46 (3.65-5.03) M/mm3 Hgb 13.6 (11.8-15.2) gm/dl Hct 39.7 (35.5-45.6) % MCV 89 (84-94) fl MCH 30 (28-32) pg MCHC 34 (32-34) % RDW 15.1 (13.2-15.2) % Plt Count 269 (140-440) K/mm3 Lymph % (Auto) 17.2 (13.4-35.0) % Keith % (Auto) 8.8 H (0.0-7.3) % Eos % (Auto) 0.3 (0.0-4.3) % Baso % (Auto) 0.4 (0.0-1.8) % Lymph # 1.5 (1.2-5.4) K/mm3 Keith # 0.8 (0.0-0.8) K/mm3 Eos # 0.0 (0.0-0.4) K/mm3 Baso # 0.0 (0.0-0.1) K/mm3 Seg Neutrophils % 73.3 H (40.0-70.0) % Seg Neutrophils # 6.5 (1.8-7.7) K/mm3 Sodium 139 (137-145) mmol/L Potassium 4.2 (3.6-5.0) mmol/L Chloride 99.2 (98-107) mmol/L Carbon Dioxide 28 (22-30) mmol/L Anion Gap 16 mmol/L BUN 12 (9-20) mg/dL Creatinine 1.0 (0.8-1.5) mg/dL Estimated GFR > 60 ml/min BUN/Creatinine Ratio 12 % Glucose 103 H (75-100) mg/dL Calcium 8.8 (8.4-10.2) mg/dL - Medical Decision Making sling provided prior to d/c bp improved with clonidine pain improved with Dilaudid, toradol, decadron Pt will be d/obie home with a refill and meds and sx treatment of gout - Differential Diagnosis gout, hypertensive emergency/urgency, cellulitis Critical Care Time: No Critical care attestation.: If time is entered above; I have spent that time in minutes in the direct care of this critically ill patient, excluding procedure time. ED Disposition Clinical Impression: Gout flare, Hypertension, Medication refill, Noncompliance with medication regimen Disposition: TO HOME OR SELFCARE Is pt being admited?: No Does the pt Need Aspirin: No Condition: Stable Instructions: Acute Gouty Arthritis (ED), Hypertension (ED) Additional Instructions: Taken medications as prescribed. Return if symptoms worsen. Follow up with the doctor provided with a doctor of your choice Prescriptions: ALBUTEROL Inhaler [ProAir HFA Inhaler] 1 puff IH Q4H PRN #1 inha PRN Reason: Wheezing Colchicine 0.6 mg PO QDAY #30 tablet Losartan [Cozaar] 50 mg PO QDAY #30 tablet Naproxen [Naprosyn TAB] 500 mg PO BID PRN #25 tablet PRN Reason: Pain Oxycodone HCl/Acetaminophen [Percocet 7.5/325 mg] 1 each PO Q6HR PRN #20 tablet PRN Reason: Pain Prednisone [predniSONE 10 mg (6-Day Pack, 21 Tabs)] 10 mg PO .TAPER #1 tab.ds.pk Referrals: PRIMARY CAREMD [Primary Care Provider] - 2-3 Days WERNER SOLANO MD [Staff Physician] - 3-5 Days Time of Disposition: 14:33
== END 2017-05-09 15:03 | disposition home or self-care (01) ==
LOC: ED 09:03
DX: M10.9 Gout, unspecified (principal); I10 Essential (primary) hypertension; M19.90 Unspecified osteoarthritis, unspecified site; Z87.891 Personal history of nicotine dependence
CPT/HCPCS: 36415; 80048; 85025; 96372; 99284; J1100; J1170; J1885

== ENCOUNTER 2017-08-18 03:49 | Emergency (ER) | payer MEDICAID ==
[2017-08-18] MEDS ORDERED: TORADOL IM ONE (05:20)
[2017-08-18] MEDS ORDERED: INDOCIN PO ONE (05:31)
[2017-08-18] MEDS ORDERED: DELTASONE PO ONE (05:36)
[2017-08-18] MEDS ORDERED: CATAPRES PO ONE (05:56)
--- NOTE | 2017-08-18 05:59 | Emergency Department Report ---
Upper Extremity - [facility] Chief Complaint: Extremity Injury, Upper Stated Complaint: GOUT Time Seen by Provider: 08/18/17 05:54 Upper Extremity: Right Elbow Occurred When: 1 Day Severity: moderate Symptoms: Yes Pain with Movement, Yes Limited Range of Movement, Yes Swelling, No Deformity, No Numbness, No Weakness, No Bruising/Ecchymosis Other History: Patient is a 57-year-old male with a history of blood pressure and gout who presents to ED complaining of gout flareup to his right elbow. Patient states today he started having shaking and pain to his right elbow. Patient states he has been out of his medication for a while now. Patient states he had no injuries or trauma to the elbow. Patient states he was a somewhat difficult to take his blood pressure medication yesterday. He states he normally takes losartan 50mg for his blood pressure ED Review of Systems ROS: Stated complaint: GOUT Other details as noted in HPI Constitutional: denies: chills, fever Eyes: denies: eye pain, eye discharge, vision change ENT: denies: ear pain, throat pain Respiratory: denies: cough, shortness of breath, wheezing Cardiovascular: denies: chest pain, palpitations Endocrine: no symptoms reported Gastrointestinal: denies: abdominal pain, nausea, diarrhea Genitourinary: denies: urgency, dysuria Musculoskeletal: denies: back pain, joint swelling, arthralgia Skin: denies: rash, lesions Neurological: denies: headache, weakness, paresthesias Psychiatric: denies: anxiety, depression Hematological/Lymphatic: denies: easy bleeding, easy bruising ED Past Medical Hx - Past Medical History Hx Hypertension: Yes Hx of Cancer: Yes (Prostate) Hx Arthritis: Yes (gout) Additional medical history: "sleep disorder" - Surgical History Additional Surgical History: right acl repair -1989. radiation / seed implants - Social History Smoking Status: Never Smoker Substance Use Type: None - Medications Home Medications: Home Medications Medication Instructions Recorded Confirmed Last Taken Type traMADol [Ultram] 50 mg PO Q6HR PRN #10 tablet 09/21/16 05/09/17 Unknown Rx ALBUTEROL Inhaler [ProAir HFA 1 puff IH Q4H PRN #1 inha 05/09/17 Unknown Rx Inhaler] Losartan [Cozaar] 50 mg PO QDAY #30 tablet 05/09/17 Unknown Rx Oxycodone HCl/Acetaminophen 1 each PO Q6HR PRN #20 tablet 05/09/17 Unknown Rx [Percocet 7.5/325 mg] Colchicine 0.6 mg PO QDAY #30 tablet 08/18/17 Unknown Rx HYDROcodone/APAP 5-325 [[place] 1 each PO Q8H PRN #10 tablet 08/18/17 Unknown Rx 5-325 mg TAB] Naproxen [Naprosyn TAB] 500 mg PO BID PRN #25 tablet 08/18/17 Unknown Rx Prednisone [predniSONE 10 mg 10 mg PO .TAPER #1 tab.ds.pk 08/18/17 Unknown Rx (6-Day Pack, 21 Tabs)] Upper Extremity Exam - Exam General: Vital signs noted. No distress. Alert and acting appropriately. Head and Torso: No HEENT Abnormality, No Neck Tenderness, No Chest/Lungs Abnormality, No Abdominal Tenderness, No Back Tenderness Shoulder Exam: Yes Normal Range of Motion in Shoulder, No Shoulder Tenderness, No Clavicle Tenderness, No Shoulder Deformity, No AC Joint Tenderness Arm Exam: No Arm/Humerus Tenderness, No Arm Deformity Elbow: Yes Elbow Tenderness (warm to touch, erythemathous), No Normal Range of Motion in Elbow, No Elbow Deformity Forearm: No Forearm Tenderness, No Forearm Deformity, No Pain with Pronation, No Pain with Supination Wrist: Yes Normal ROM in Wrist, No Wrist Tenderness, No Wrist Deformity, No Snuffbox Tenderness, No Pain with Axial Thumb Compression Hand: Yes Normal ROM in Digit(s), No Hand Tenderness, No Hand Deformity, No Digit Tenderness, No Digit(s) Deformity, No Tendon Dysfunction CMS Exam: No Broken Skin, No Normal Distal Pulses, No Normal Capillary Refill, No Normal Distal Sensation ED Course Vital Signs 08/18/17 08/18/17 04:56 05:12 Temperature 99.2 F 99.2 F Pulse Rate 102 H 100 H Respiratory 18 18 Rate Blood Pressure 167/100 167/100 O2 Sat by Pulse 98 100 Oximetry ED Medical Decision Making - Radiology Data Radiology results: report reviewed, image reviewed FINAL REPORT EXAM: XR ELBOW 2V RT HISTORY: right elbow pain COMPARISONS: None. FINDINGS: AP and lateral views right elbow Alignment is anatomic, joint spaces are preserved, and subchondral surfaces appear smooth. An elbow joint effusion is suggested. There is mild soft tissue swelling over the olecranon. Small triceps insertional enthesophytes are present. No erosion or fracture identified. IMPRESSION: A small elbow joint effusion and olecranon bursitis are present, which may be infectious, inflammatory or posttraumatic in etiology. No fracture or erosions identified. If there is concern for joint infection, aspiration is recommended. Notification initiated via [employer] operations support specialist immediately following this dictation on 08/18/2017. Transcribed By: SAMANTHA Dictated By: FOREIGN BAGLEY MD Electronically Authenticated By: FOREIGN BAGLEY MD Signed Date/Time: 08/18/17 0159 - Medical Decision Making he is a 57-year-old male presents to gouty arthritis of the elbow EDCourse: Patient received Toradol, prednisone, indomethacin, clonidine 0.1 in ED X-rays of the elbow ordered. X-ray shows she reported above. Based on examination there is no fluid surrounding the elbow, it is non- edematous This is most likely due to inflammatory process due to an acute gout flareup rather than an infectious joint elbow I discussed the patient is to follow-up with the primary care physician as soon as possible. I also discussed the patient was given orthopedic referral to have his elbow reassessed. I discussed xray findings with the patient and to patient importance of following up due to the findings. I discussed with patient on the referral to primary care physicians and has follow-up. I discussed with the patient that if symptoms get worse or if new symptoms develop to return to ED immediately I discussed with patient to make sure he follows up and this medication daily. Vital signs are normalized patient is in no acute distress. Critical care attestation.: If time is entered above; I have spent that time in minutes in the direct care of this critically ill patient, excluding procedure time. ED Disposition Clinical Impression: Gouty arthritis Disposition: DC-01 TO HOME OR SELFCARE Is pt being admited?: No Does the pt Need Aspirin: No Condition: Stable Instructions: Acute Gouty Arthritis (ED), Arthralgia (ED) Additional Instructions: Make sure to follow up with the primary care physician as discussed. Take all your medications as you've been prescribed. If you have any worsening symptoms or develop new symptoms please return to ED immediately. Prescriptions: Colchicine 0.6 mg PO QDAY #30 tablet HYDROcodone/APAP 5-325 [[place] 5-325 mg TAB] 1 each PO Q8H PRN #10 tablet PRN Reason: Pain Naproxen [Naprosyn TAB] 500 mg PO BID PRN #25 tablet PRN Reason: Pain Prednisone [predniSONE 10 mg (6-Day Pack, 21 Tabs)] 10 mg PO .TAPER #1 tab.ds.pk Referrals: FOREIGN SAMUELS MD [Primary Care Provider] - 3-5 Days EFE LUQUE MD [Referring] - 3-5 Days NADIA GARCIA MD [Staff Physician] - 3-5 Days [facility] [Outside] - 3-5 Days [facility] [Outside] - 3-5 Days Forms: Work/School Release Form(ED) Time of Disposition: 06:30
--- NOTE | 2017-08-18 06:02 | XRay Report ---
FINAL REPORT EXAM: XR ELBOW 2V RT HISTORY: right elbow pain COMPARISONS: None. FINDINGS: AP and lateral views right elbow Alignment is anatomic, joint spaces are preserved, and subchondral surfaces appear smooth. An elbow joint effusion is suggested. There is mild soft tissue swelling over the olecranon. Small triceps insertional enthesophytes are present. No erosion or fracture identified. IMPRESSION: A small elbow joint effusion and olecranon bursitis are present, which may be infectious, inflammatory or posttraumatic in etiology. No fracture or erosions identified. If there is concern for joint infection, aspiration is recommended. Notification initiated via [employer] client support coordinator immediately following this dictation on 08/18/2017.
[2017-08-18 07:16] VITALS: BP 145/107
== END 2017-08-18 07:24 | disposition home or self-care (01) ==
LOC: ED 03:49
DX: M10.9 Gout, unspecified (principal); I10 Essential (primary) hypertension; C61 Malignant neoplasm of prostate
CPT/HCPCS: 73070; 96372; 99283; J1885; J7512

== ENCOUNTER 2018-02-14 07:04 | Emergency (ER) | payer MEDICAID ==
[2018-02-14] MEDS ORDERED: COLCHICINE PO ONE (08:17)
[2018-02-14] MEDS ORDERED: DECADRON IM ONE (08:17)
[2018-02-14] MEDS ORDERED: TORADOL IM ONE (08:17)
--- NOTE | 2018-02-14 08:17 | Emergency Department Report ---
ED Extremity Problem HPI - General Chief complaint: Extremity Problem,Nontraumatic Stated complaint: GOUT, AND PAIN Time Seen by Provider: 02/14/18 08:16 Source: patient, family Mode of arrival: Ambulatory Limitations: No Limitations - History of Present Illness Initial comments: Patient here complaining the left foot pain due to gout flare. Patient said he is out of his medication to include his blood pressure medication. He denies any trauma. He also has high blood pressure and takes losartan which he said that he needs a refill on. Pain is 10 out of 10 throbbing achy. He is also reporting pain to the left big toe radiated down to the left side of his foot. Pain is better at rest then. No medication taken MD Complaint: joint swelling, joint paint Onset/Timin -: days(s) Location: left, toe (great toe extending down to the left foot) History of Same: Yes -: No myalgia, Yes arthralgia, No fever, No associated dyspnea, No associated chest pain Radiation: proximal Severity scale (0 -10): 10 Quality: aching (and throbbing in), constant Consistency: constant Improves with: rest Worsens with: weight bearing, walking, palpation Associated Symptoms: arthralgias. denies: chest pain, shortness of breath, fever, myalgias, rash - Related Data Previous Rx's Medication Instructions Recorded Last Taken Type traMADol [Ultram] 50 mg PO Q6HR PRN #10 tablet 09/21/16 Unknown Rx ALBUTEROL Inhaler [ProAir HFA 1 puff IH Q4H PRN #1 inha 05/09/17 Unknown Rx Inhaler] Oxycodone HCl/Acetaminophen 1 each PO Q6HR PRN #20 tablet 05/09/17 Unknown Rx [Percocet 7.5/325 mg] HYDROcodone/APAP 5-325 [[place] 1 each PO Q8H PRN #10 tablet 08/18/17 Unknown Rx 5-325 mg TAB] Colchicine 0.6 mg PO BID PRN #15 tablet 02/14/18 Unknown Rx Losartan [Cozaar] 50 mg PO QDAY #30 tablet 02/14/18 Unknown Rx Naproxen [Naprosyn TAB] 500 mg PO BID PRN #14 tablet 02/14/18 Unknown Rx Prednisone [predniSONE 10 mg 10 mg PO .TAPER #1 tab.ds.pk 02/14/18 Unknown Rx (6-Day Pack, 21 Tabs)] Allergies Allergy/AdvReac Type Severity Reaction Status Date / Time tramadol [From Ultram] Allergy Itching Verified 02/14/18 07:21 ED Review of Systems ROS: Stated complaint: GOUT, AND PAIN Other details as noted in HPI Constitutional: denies: chills, fever Eyes: vision change. denies: eye pain, eye discharge ENT: ear pain. denies: throat pain, congestion Respiratory: denies: cough, shortness of breath, SOB with exertion, SOB at rest , stridor, wheezing Cardiovascular: denies: chest pain, palpitations, edema, syncope Gastrointestinal: denies: abdominal pain, nausea, vomiting, diarrhea Genitourinary: denies: urgency, dysuria Musculoskeletal: joint swelling, arthralgia. denies: back pain Skin: denies: rash, lesions Neurological: denies: headache, weakness, numbness, paresthesias, confusion, abnormal gait, vertigo ED Past Medical Hx - Past Medical History Previous Medical History?: Yes Hx Hypertension: Yes Hx Arthritis: Yes (gout) Additional medical history: "sleep disorder" - Surgical History Past Surgical History?: Yes Additional Surgical History: right acl repair -1989. radiation / seed implants - Family History Family history: hypertension - Social History Smoking Status: Never Smoker Substance Use Type: None - Medications Home Medications: Home Medications Medication Instructions Recorded Confirmed Last Taken Type traMADol [Ultram] 50 mg PO Q6HR PRN #10 tablet 09/21/16 05/09/17 Unknown Rx ALBUTEROL Inhaler [ProAir HFA 1 puff IH Q4H PRN #1 inha 05/09/17 Unknown Rx Inhaler] Oxycodone HCl/Acetaminophen 1 each PO Q6HR PRN #20 tablet 05/09/17 Unknown Rx [Percocet 7.5/325 mg] HYDROcodone/APAP 5-325 [[place] 1 each PO Q8H PRN #10 tablet 08/18/17 Unknown Rx 5-325 mg TAB] Colchicine 0.6 mg PO BID PRN #15 tablet 02/14/18 Unknown Rx Losartan [Cozaar] 50 mg PO QDAY #30 tablet 02/14/18 Unknown Rx Naproxen [Naprosyn TAB] 500 mg PO BID PRN #14 tablet 02/14/18 Unknown Rx Prednisone [predniSONE 10 mg 10 mg PO .TAPER #1 tab.ds.pk 02/14/18 Unknown Rx (6-Day Pack, 21 Tabs)] ED Physical Exam - General Limitations: No Limitations General appearance: alert, in no apparent distress - Head Head exam: Present: atraumatic, normocephalic, normal inspection - Eye Eye exam: Present: normal appearance, PERRL, EOMI Pupils: Present: normal accommodation - ENT ENT exam: Present: normal exam, normal orophraynx, mucous membranes moist - Neck Neck exam: Present: normal inspection, full ROM. Absent: tenderness, meningismus, lymphadenopathy - Respiratory Respiratory exam: Present: normal lung sounds bilaterally. Absent: respiratory distress, chest wall tenderness - Cardiovascular Cardiovascular Exam: Present: regular rate, normal rhythm, normal heart sounds. Absent: systolic murmur, diastolic murmur - GI/Abdominal GI/Abdominal exam: Present: soft, normal bowel sounds. Absent: distended, tenderness, guarding, rebound, rigid - Extremities Exam Extremities exam: Present: normal inspection - Back Exam Back exam: Present: normal inspection, full ROM, other (ambulates without dificulties). Absent: tenderness, CVA tenderness (R), CVA tenderness (L), muscle spasm, paraspinal tenderness, vertebral tenderness, rash noted - Neurological Exam Neurological exam: Present: alert, oriented X3, normal gait - Psychiatric Psychiatric exam: Present: normal affect, normal mood - Skin Skin exam: Present: warm, dry, intact, normal color. Absent: rash ED Course Vital Signs 02/14/18 02/14/18 02/14/18 07:17 08:42 08:50 Temperature 98.6 F Pulse Rate 70 70 Respiratory 16 18 Rate Blood Pressure 153/116 195/131 O2 Sat by Pulse 97 99 Oximetry 02/14/18 08:51 Temperature Pulse Rate 67 Respiratory Rate Blood Pressure 195/131 O2 Sat by Pulse Oximetry Vital Signs 02/14/18 02/14/18 02/14/18 07:17 08:42 08:50 Temperature 98.6 F Pulse Rate 70 70 Respiratory 16 18 Rate Blood Pressure 153/116 195/131 Blood Pressure [Right] O2 Sat by Pulse 97 99 Oximetry 02/14/18 02/14/18 08:51 10:13 Temperature Pulse Rate 67 65 Respiratory 18 Rate Blood Pressure 195/131 Blood Pressure 142/95 [Right] O2 Sat by Pulse Oximetry - Reevaluation(s) Reevaluation #1: 02/14/18 10:10 Patient given Colcrys 1.2 mg by mouth, Decadron 10 mg IM and Toradol 10 mg IM and emergency room. The pain has reduced to 3/10. Blood pressure is elevated anything symptomatic he was given clonidine 0.2 mg because he has not taken his losartan he said he ran out and he needs refill. Reevaluation #2: 02/14/18 10:17 Blood pressure is better to 142/95. ED Medical Decision Making - Medical Decision Making This is a 57-year-old male here reported that he has got clear Critical care attestation.: If time is entered above; I have spent that time in minutes in the direct care of this critically ill patient, excluding procedure time. ED Disposition Clinical Impression: Medication refill Gout flare Qualifiers: Gout site: toe Gout etiology: unspecified cause Laterality: left Qualified Code (s): M10.9 - Gout, unspecified Hypertension Qualifiers: Hypertension type: essential hypertension Qualified Code(s): I10 - Essential ( primary) hypertension Disposition: DC-01 TO HOME OR SELFCARE Is pt being admited?: No Does the pt Need Aspirin: No Condition: Stable Instructions: Hypertension (ED), Acute Gouty Arthritis (ED) Additional Instructions: keep a log of your blood pressure and I will refer you to for primary care. Call today to schedule appointments for first-time visit. If he cannot get in with Dr. Currie you can follow-up at [facility] Take medication as prescribed Increasing fluid intake Avoid food that is fine. And referred to discharge instruction paperwork for details Prescriptions: Colchicine 0.6 mg PO BID PRN #15 tablet PRN Reason: gout pain Losartan [Cozaar] 50 mg PO QDAY #30 tablet Naproxen [Naprosyn TAB] 500 mg PO BID PRN #14 tablet PRN Reason: Pain Prednisone [predniSONE 10 mg (6-Day Pack, 21 Tabs)] 10 mg PO .TAPER #1 tab.ds.pk Referrals: PRIMARY CARE, [Primary Care Provider] - 3-5 Days [facility] [Outside] - 3-5 Days Forms: Work/School Release Form(ED)
[2018-02-14] MEDS ORDERED: CATAPRES PO ONE (08:33)
[2018-02-14 10:13] VITALS: BP 142/95
== END 2018-02-14 10:29 | disposition home or self-care (01) ==
LOC: ED 07:04
DX: M10.9 Gout, unspecified (principal); Z76.0 Encounter for issue of repeat prescription; I10 Essential (primary) hypertension; Z88.8 Allergy status to other drugs, medicaments and biological substances
CPT/HCPCS: 96372; 99282; J1100; J1885

== ENCOUNTER 2018-04-17 07:10 | Emergency (ER) | payer MEDICAID ==
--- NOTE | 2018-04-17 08:50 | Emergency Department Report ---
ED Lower Extremity HPI - General Chief Complaint: Pain General Stated Complaint: POSS GOUT FLARE UP Source: patient Mode of arrival: Ambulatory Limitations: No Limitations - History of Present Illness Initial Comments: This is a 58-year-old -Martiniquais male who presents with pain to left elbow and right heel for 1-2 weeks. Past medical history gout, hypertension, and prostate cancer. He states he believes this is a gout flare. It initially started with fingers and progressed to left elbow last week. Patient states he is taken colchicine daily as prescribed from primary care provider Dr. Tavares. Patient states he ran out of prednisone and pain has increased ever since. He complains of swelling and redness to left elbow and right heel. Patient states it is pain with range of motion and reports pain as 10 out of 10 on pain scale. She denies recent injury, fever, numbness or tingling, pierced seizures, and weakness. MD Complaint: foot injury (right foot), other (left elbow) Onset/Timin -: week(s) Injury: Foot: Right Type of Injury: unknown Place: home Severity: severe Severity scale (0 -10): 10 Improves With: nothing Worsens With: weight bearing, movement, palpation Associated Symptoms: swelling, able to partially bear weight, ambulatory Treatments Prior to Arrival: NSAIDS - Related Data Previous Rx's Medication Instructions Recorded Last Taken Type traMADol [Ultram] 50 mg PO Q6HR PRN #10 tablet 09/21/16 Unknown Rx ALBUTEROL Inhaler (OR & NICU) 1 puff IH Q4H PRN #1 inha 05/09/17 Unknown Rx [ProAir HFA Inhaler] Oxycodone HCl/Acetaminophen 1 each PO Q6HR PRN #20 tablet 05/09/17 Unknown Rx [Percocet 7.5/325 mg] HYDROcodone/APAP 5-325 [[place] 1 each PO Q8H PRN #10 tablet 08/18/17 Unknown Rx 5-325 mg TAB] Colchicine 0.6 mg PO BID PRN #15 tablet 02/14/18 Unknown Rx Losartan [Cozaar] 50 mg PO QDAY #30 tablet 02/14/18 Unknown Rx Naproxen [Naprosyn TAB] 500 mg PO BID PRN #14 tablet 02/14/18 Unknown Rx Prednisone [predniSONE 10 mg 10 mg PO .TAPER #1 tab.ds.pk 02/14/18 Unknown Rx (6-Day Pack, 21 Tabs)] Indomethacin 50 mg PO Q8H #15 capsule 04/17/18 Unknown Rx Prednisone [predniSONE 10 mg 10 mg PO .TAPER #1 tab.ds.pk 04/17/18 Unknown Rx (6-Day Pack, 21 Tabs)] Allergies Allergy/AdvReac Type Severity Reaction Status Date / Time tramadol [From Ultram] Allergy Itching Verified 02/14/18 07:21 ED Review of Systems ROS: Stated complaint: POSS GOUT FLARE UP Other details as noted in HPI Constitutional: denies: chills, fever Respiratory: denies: cough, shortness of breath, wheezing Cardiovascular: denies: chest pain, palpitations Gastrointestinal: denies: abdominal pain, nausea, diarrhea Musculoskeletal: joint swelling (left elbow and right heel), arthralgia (left elbow and right heel). denies: back pain Skin: denies: rash, lesions Neurological: denies: headache, weakness, paresthesias Psychiatric: denies: anxiety, depression ED Past Medical Hx - Past Medical History Previous Medical History?: Yes Hx Hypertension: Yes Hx of Cancer: Yes (prostate) Hx Arthritis: Yes (gout) Additional medical history: "sleep disorder" - Surgical History Past Surgical History?: Yes Additional Surgical History: left acl repair -1989. radiation / seed implants - Social History Smoking Status: Never Smoker Substance Use Type: None - Medications Home Medications: Home Medications Medication Instructions Recorded Confirmed Last Taken Type traMADol [Ultram] 50 mg PO Q6HR PRN #10 tablet 09/21/16 05/09/17 Unknown Rx ALBUTEROL Inhaler (OR & NICU) 1 puff IH Q4H PRN #1 inha 05/09/17 Unknown Rx [ProAir HFA Inhaler] Oxycodone HCl/Acetaminophen 1 each PO Q6HR PRN #20 tablet 05/09/17 Unknown Rx [Percocet 7.5/325 mg] HYDROcodone/APAP 5-325 [[place] 1 each PO Q8H PRN #10 tablet 08/18/17 Unknown Rx 5-325 mg TAB] Colchicine 0.6 mg PO BID PRN #15 tablet 02/14/18 Unknown Rx Losartan [Cozaar] 50 mg PO QDAY #30 tablet 02/14/18 Unknown Rx Naproxen [Naprosyn TAB] 500 mg PO BID PRN #14 tablet 02/14/18 Unknown Rx Prednisone [predniSONE 10 mg 10 mg PO .TAPER #1 tab.ds.pk 02/14/18 Unknown Rx (6-Day Pack, 21 Tabs)] Indomethacin 50 mg PO Q8H #15 capsule 04/17/18 Unknown Rx Prednisone [predniSONE 10 mg 10 mg PO .TAPER #1 tab.ds.pk 04/17/18 Unknown Rx (6-Day Pack, 21 Tabs)] ED Physical Exam - General Limitations: No Limitations General appearance: alert, in no apparent distress, obese - Respiratory Respiratory exam: Present: normal lung sounds bilaterally. Absent: respiratory distress - Cardiovascular Cardiovascular Exam: Present: regular rate, normal rhythm. Absent: systolic murmur, diastolic murmur, rubs, gallop - GI/Abdominal GI/Abdominal exam: Present: soft, normal bowel sounds - Expanded Upper Extremity Exam Left Shoulder Exam: Present: tenderness, swelling (over olecranon). Absent: full ROM (limited secondary pain) Upper Arm exam: Present: normal inspection, full ROM Elbow exam: Present: normal inspection, full ROM Forearm Wrist exam: Present: normal inspection, full ROM Hand Wrist exam: Present: normal inspection, full ROM Neuro motor exam: Present: wrist extension intact, thumb opposition intact, thumb IP flexion intact, thumb adduction intact, fingers 2-5 abduction intact Neurosensory exam: Present: radial nerve intact, ulnar nerve intact, median nerve intact Vascular: Present: normal capillary refill, radial pulse (+2) - Expanded Lower Extremity Exam Right Hip exam: Present: normal inspection, full ROM Upper Leg exam: Present: normal inspection, full ROM Knee exam: Present: normal inspection, full ROM Lower Leg exam: Present: normal inspection, full ROM Ankle exam: Present: normal inspection, full ROM Foot/Toe exam: Present: tenderness (erythema, tenderness and swelling over dorsal lateral ), swelling, erythema. Absent: full ROM (Limited range of motion ) Neuro vascular tendon exam: Present: no vascular compromise - Neurological Exam Neurological exam: Present: alert, oriented X3 - Psychiatric Psychiatric exam: Present: normal affect, normal mood - Skin Skin exam: Present: warm, dry, intact, normal color. Absent: rash ED Course Vital Signs 04/17/18 04/17/18 08:02 09:37 Temperature 99.1 F 98.4 F Pulse Rate 97 H 69 Respiratory 18 16 Rate Blood Pressure 159/107 Blood Pressure 136/90 [Left] O2 Sat by Pulse 96 98 Oximetry ED Lower Extremity MDM - Lab Data Result diagrams: 04/17/18 08:56 04/17/18 08:56 Lab Results 04/17/18 04/17/18 Range/Units 08:56 08:56 WBC 7.9 (4.5-11.0) K/mm3 RBC 4.38 (3.65-5.03) M/mm3 Hgb 13.3 (11.8-15.2) gm/dl Hct 39.3 (35.5-45.6) % MCV 90 (84-94) fl MCH 30 (28-32) pg MCHC 34 (32-34) % RDW 15.0 (13.2-15.2) % Plt Count 257 (140-440) K/mm3 Sodium 140 (137-145) mmol/L Potassium 4.1 (3.6-5.0) mmol/L Chloride 102.1 (98-107) mmol/L Carbon Dioxide 29 (22-30) mmol/L Anion Gap 13 mmol/L BUN 7 L (9-20) mg/dL Creatinine 1.2 (0.8-1.5) mg/dL Estimated GFR > 60 ml/min BUN/Creatinine Ratio 6 % Glucose 121 H (75-100) mg/dL Calcium 9.1 (8.4-10.2) mg/dL - Medical Decision Making This is a 58 y.o. male that presents with swelling over left olecranon area and right foot for 2 weekS. Hx of gout, hypertension, and prostate cancer. Patient is stable and examined by me. Blood pressure elevated on arrival. Patient given Toradol 30 mg IM and dexamethasone 10 mg IM while in ER. Obtained labs, all unremarkable. Patient took personal losartan 50 mg prior to arrival. Discussed plan to start prednisone taper and indomethacin 50 mg po tid with patient for a gout flare. Reevaluation of vitals prior to discharge blood pressure 136/101 which is trended down and patient is asymptomatic will be discharged. Patient instructed to follow-up with Dr. Tavares for management of hypotension. Educated patient on low purine diet and given handout. Patient agrees to ED plan of care. Discharged home and follow up with PCP in 3 days. Critical care attestation.: If time is entered above; I have spent that time in minutes in the direct care of this critically ill patient, excluding procedure time. ED Disposition Clinical Impression: Asymptomatic hypertension Gout flare Qualifiers: Gout site: multiple sites Gout etiology: idiopathic Qualified Code(s): M10.09 - Idiopathic gout, multiple sites Hypertension Qualifiers: Hypertension type: essential hypertension Qualified Code(s): I10 - Essential ( primary) hypertension Disposition: TO HOME OR SELFCARE Is pt being admited?: No Does the pt Need Aspirin: No Condition: Stable Instructions: Low Purine Diet (ED), Acute Gouty Arthritis (ED), Hypertension ( ED) Additional Instructions: Avoid foods that have a high purine content such as alcohol, organ meats, and seafood can cause higher risk of elevated uric acid and gout. Reduce intake of alcohol, especially beer, lowers the risk of gout. Reduce the intake of vegetables high in purines such as asparagus, spinach, and mushrooms. Dairy products reduce the risk of gout. Follow up with primary care provider in 2-3 days. Prescriptions: Indomethacin 50 mg PO Q8H #15 capsule Prednisone [predniSONE 10 mg (6-Day Pack, 21 Tabs)] 10 mg PO .TAPER #1 tab.ds.pk Referrals: ABEL TAVARES MD [Staff Physician] - 3-5 Days AUSTIN MIN MD [Staff Physician] - 3-5 Days [facility] [Outside] - 3-5 Days Time of Disposition: : Print Language: KAZAKH
[2018-04-17] MEDS ORDERED: DECADRON IM ONE (08:52)
[2018-04-17] MEDS ORDERED: TORADOL IM ONE (08:54)
[2018-04-17 09:05] LABS: Hematocrit 39.3 % (35.5-45.6); Hemoglobin 13.3 gm/dl (11.8-15.2); Mean Corpuscular HGB Conc 34 % (32-34); Mean Corpuscular Hemoglobin 30 pg (28-32); Mean Corpuscular Volume 90 fl (84-94); Platelet Count 257 K/mm3 (140-440); Red Blood Count 4.38 M/mm3 (3.65-5.03)
[2018-04-17 09:17] LABS: BUN/Creatinine Ratio 6; Blood Urea Nitrogen 7 mg/dL (9-20); Calcium 9.1 mg/dL (8.4-10.2); Hemolysis Index 5
[2018-04-17 09:39] VITALS: BP 136/90
== END 2018-04-17 09:40 | disposition home or self-care (01) ==
LOC: ED 07:10
DX: I10 Essential (primary) hypertension (principal); M10.09 Idiopathic gout, multiple sites; Z85.46 Personal history of malignant neoplasm of prostate; Z88.6 Allergy status to analgesic agent
CPT/HCPCS: 36415; 80048; 85027; 96372; 99283; J1100; J1885

== ENCOUNTER 2018-10-02 07:23 | Emergency (ER) | payer MEDICAID ==
[2018-10-02 07:28] VITALS: BP 156/111
[2018-10-02] MEDS ORDERED: DECADRON IM ONE (07:44)
--- NOTE | 2018-10-02 07:49 | Emergency Department Report ---
Upper Respiratory HPI - HPI Chief Complaint: Extremity Injury, Upper Stated Complaint: GOUT PAIN Time Seen by Provider: 10/02/18 07:39 Duration: 2 Days URI Symptoms: Rhinorrhea: Yes, Sore Throat: Yes, Ear Pain: No, Cough: Yes, Shortness of Breath: No, Sick Contacts: No, Unable to Take Fluids: No, Urine Output Abnormal: No, Listless Behavior: No Other History: This is a 58-year-old male nontoxic, well nourished in appearance, no acute signs of distress presents to the ED with c/o of productive cough, sore throat, rhinorrhea, nasal congestion x2 days. Patient also stated has typical gout flareup to left hand. Denies any injuries or trauma. Patient describes productive cough as yellow mucus production. Patient denies any sick contact. Patient denies any recent travels, long car, recent hospital stays. Patient denies any calf pain or calf tenderness. Patient denies any chest pain, short of breath, fever, chills, nausea, vomiting, hemoptysis, numbness, tingling, headache or stiff neck. Patient stated allergies to tramadol. - Home Meds and Allergies Home Medications: Previous Rx's Medication Instructions Recorded Last Taken Type Indomethacin 50 mg PO Q8H #15 capsule 04/17/18 Unknown Rx Colchicine [Mitigare] 0.6 mg PO DAILY PRN #20 capsule 05/26/18 Unknown Rx Losartan [Cozaar] 50 mg PO QDAY #30 tablet 05/26/18 Unknown Rx hydrALAZINE [Apresoline TAB] 25 mg PO Q8HR #90 tablet 05/26/18 Unknown Rx predniSONE [Deltasone] 10 mg PO QDAY #30 tab 05/26/18 Unknown Rx HYDROcodone/APAP 5-325 [[place] 1 each PO Q6HR PRN #14 tablet 09/03/18 Unknown Rx 5/325] Ondansetron [Zofran Odt] 4 mg PO Q8HR PRN #14 tab.rapdis 09/03/18 Unknown Rx Oseltamivir [Tamiflu] 75 mg PO BID #10 cap 09/03/18 Unknown Rx Prednisone [predniSONE 10 mg 10 mg PO .TAPER #1 tab.ds.pk 09/03/18 Unknown Rx (6-Day Pack, 21 Tabs)] Azithromycin [Zithromax Z-STACY] 250 mg PO DAILY #6 tablet 10/02/18 Unknown Rx Indomethacin 50 mg PO Q8H #15 capsule 10/02/18 Unknown Rx Prednisone [predniSONE 10 mg 10 mg PO .TAPER #1 tab.ds.pk 10/02/18 Unknown Rx (6-Day Pack, 21 Tabs)] Allergies/Adverse Reactions: Allergies Allergy/AdvReac Type Severity Reaction Status Date / Time tramadol [From Ultram] Allergy Itching Verified 10/02/18 07:23 ED Review of Systems ROS: Stated complaint: GOUT PAIN Other details as noted in HPI Constitutional: denies: chills, fever Eyes: denies: eye pain, eye discharge, vision change ENT: throat pain, congestion. denies: ear pain Respiratory: cough. denies: shortness of breath, wheezing Cardiovascular: denies: chest pain, palpitations Endocrine: no symptoms reported Gastrointestinal: denies: abdominal pain, nausea, diarrhea Genitourinary: denies: urgency, dysuria Musculoskeletal: denies: back pain, joint swelling, arthralgia Skin: denies: rash, lesions Neurological: denies: headache, weakness, paresthesias Psychiatric: denies: anxiety, depression Hematological/Lymphatic: denies: easy bleeding, easy bruising ED Past Medical Hx - Past Medical History Hx Hypertension: Yes Hx Congestive Heart Failure: No Hx Diabetes: No Hx Arthritis: Yes (gout) Hx Asthma: No Hx COPD: No Additional medical history: "sleep disorder"-no CPAP,prostate ca 2014 in remission - Surgical History Additional Surgical History: left acl repair -1989. radiation / seed implants - Social History Smoking Status: Never Smoker Substance Use Type: None - Medications Home Medications: Home Medications Medication Instructions Recorded Confirmed Last Taken Type Indomethacin 50 mg PO Q8H #15 capsule 04/17/18 05/25/18 Unknown Rx Colchicine [Mitigare] 0.6 mg PO DAILY PRN #20 capsule 05/26/18 Unknown Rx Losartan [Cozaar] 50 mg PO QDAY #30 tablet 05/26/18 Unknown Rx hydrALAZINE [Apresoline TAB] 25 mg PO Q8HR #90 tablet 05/26/18 Unknown Rx predniSONE [Deltasone] 10 mg PO QDAY #30 tab 05/26/18 Unknown Rx HYDROcodone/APAP 5-325 [[place] 1 each PO Q6HR PRN #14 tablet 09/03/18 Unknown Rx 5/325] Ondansetron [Zofran Odt] 4 mg PO Q8HR PRN #14 tab.rapdis 09/03/18 Unknown Rx Oseltamivir [Tamiflu] 75 mg PO BID #10 cap 09/03/18 Unknown Rx Prednisone [predniSONE 10 mg 10 mg PO .TAPER #1 tab.ds.pk 09/03/18 Unknown Rx (6-Day Pack, 21 Tabs)] Azithromycin [Zithromax Z-STACY] 250 mg PO DAILY #6 tablet 10/02/18 Unknown Rx Indomethacin 50 mg PO Q8H #15 capsule 10/02/18 Unknown Rx Prednisone [predniSONE 10 mg 10 mg PO .TAPER #1 tab.ds.pk 10/02/18 Unknown Rx (6-Day Pack, 21 Tabs)] ED Bronchiolitis Physical Exam - Exam General: Vital signs noted. No distress. Alert and acting appropriately. Neurologic: Alert and oriented, no deficits. Musculoskeletal: Unremarkable. ED Physical Exam - General Limitations: No Limitations General appearance: alert, in no apparent distress - Head Head exam: Present: atraumatic, normocephalic - Eye Eye exam: Present: normal appearance - Expanded ENT Exam Expanded Ear exam: Present: normal external inspection Mouth exam: Present: normal external inspection. Absent: drooling, trismus, muffled voice Teeth exam: Present: normal inspection Throat exam: Positive: tonsillar erythema, other (uvula midline.). Negative: tonsillomegaly, tonsillar exudate, R peritonsillar mass, L peritonsillar mass - Neck Neck exam: Present: normal inspection, full ROM. Absent: tenderness, meningismus, lymphadenopathy - Respiratory Respiratory exam: Present: normal lung sounds bilaterally. Absent: respiratory distress, wheezes, rales, rhonchi, stridor, chest wall tenderness, accessory muscle use, decreased breath sounds, prolonged expiratory - Cardiovascular Cardiovascular Exam: Present: regular rate, normal rhythm, normal heart sounds. Absent: irregular rhythm, systolic murmur, diastolic murmur, rubs, gallop - Extremities Exam Extremities exam: Present: normal inspection, full ROM, tenderness, normal ca pillary refill, other (left hand swelling. No cellulitis. No abscess.) - Back Exam Back exam: Present: normal inspection, full ROM - Neurological Exam Neurological exam: Present: alert, oriented X3 - Psychiatric Psychiatric exam: Present: normal affect, normal mood - Skin Skin exam: Present: warm, dry, intact, normal color. Absent: rash ED Course Vital Signs 10/02/18 07:26 Temperature 98.7 F Pulse Rate 93 H Respiratory 20 Rate Blood Pressure 156/111 O2 Sat by Pulse 97 Oximetry - Reevaluation(s) Reevaluation #1: 10/02/18 07:48 Patient is speaking in full sentences with no signs of distress noted. ED Medical Decision Making - Medical Decision Making This is a 58-year-old male that presents with bronchitis, pharyngitis and gout flare. Patient is stable and was examined by me. Chest x-ray has been obtained and dictated by radiologist with normal exam. Patient is notified of x-ray results with no questions noted. Due to patient having symptoms of upper respiratory infection and worsening I will treat patient empirically with zpak. Patient received [place] in the ED. Patient was instructed to increase hydration, rest and take Motrin for fever episodes. Vitals stable. Patient is nonfebrile and normal heart rate. Patient was instructed Follow-up with a primary care doctor in 3-5 days or if symptoms worsen and continue return to emergency room as soon as possible. At time time of discharge, the patient does not seem toxic or ill in appearance. No acute signs of distress noted. Patient agrees to discharge treatment plan of care. No further questions noted by the patient. Critical care attestation.: If time is entered above; I have spent that time in minutes in the direct care of this critically ill patient, excluding procedure time. ED Disposition Clinical Impression: Bronchitis Gout attack Qualifiers: Gout site: hand Gout etiology: unspecified cause Laterality: left Qualified Code(s): M10.9 - Gout, unspecified Pharyngitis Qualifiers: Pharyngitis/tonsillitis etiology: unspecified etiology Qualified Code(s): J02.9 - Acute pharyngitis, unspecified Hypertension Qualifiers: Hypertension type: unspecified Qualified Code(s): I10 - Essential (primary) hypertension Disposition: DC-01 TO HOME OR SELFCARE Is pt being admited?: No Does the pt Need Aspirin: No Condition: Stable Instructions: Hypertension (ED), Acute Bronchitis (ED) Additional Instructions: Follow-up with a primary care doctor in 3-5 days or if symptoms worsen and continue return to emergency room as soon as possible. Prescriptions: Indomethacin 50 mg PO Q8H #15 capsule Prednisone [predniSONE 10 mg (6-Day Pack, 21 Tabs)] 10 mg PO .TAPER #1 tab.ds.pk Azithromycin [Zithromax Z-STACY] 250 mg PO DAILY #6 tablet Referrals: [facility] MD NIKA [Primary Care Provider] - 3-5 Days PRIMARY CAREMD [Referring] - 3-5 Days JORGE L DUKE MD [Staff Physician] - 3-5 Days [facility] [Outside] - 3-5 Days [facility] [Outside] - 3-5 Days Forms: Work/School Release Form(ED)
--- NOTE | 2018-10-02 08:13 | XRay Report ---
ROUTINE CHEST, TWO VIEWS: HISTORY: Cough. The trachea, heart, mediastinal contour, lung bernard and bony thorax are unremarkable. IMPRESSION: Unremarkable chest x-ray.
== END 2018-10-02 08:27 | disposition home or self-care (01) ==
LOC: ED 07:23
DX: M10.9 Gout, unspecified (principal); J02.9 Acute pharyngitis, unspecified; J40 Bronchitis, not specified as acute or chronic; I10 Essential (primary) hypertension; Z88.6 Allergy status to analgesic agent; Z79.899 Other long term (current) drug therapy
CPT/HCPCS: 71046; 96372; 99282; J1100

== ENCOUNTER 2018-12-19 05:13 | Emergency (ER) | payer MEDICAID ==
[2018-12-19 05:20] VITALS: BP 152/108
[2018-12-19] MEDS ORDERED: DECADRON IM ONE (06:26)
[2018-12-19] MEDS ORDERED: TORADOL IM ONE (06:26)
[2018-12-19] MEDS ORDERED: COLCHICINE PO ONE (06:27)
--- NOTE | 2018-12-19 06:45 | Emergency Department Report ---
ED General Adult HPI - General Chief complaint: Pain General Stated complaint: GOUT ACHES AND PAINS Time Seen by Provider: 12/19/18 06:24 Source: patient Mode of arrival: Ambulatory Limitations: No Limitations - History of Present Illness Initial comments: 58-year-old -[place] male comes in for left shoulder and elbow pain 4 days. Patient reports his gout is flaring up. Patient reports that he took Tylenol arthritis about 12 AM. Patient reports he was lifting heavy objects 2 days ago and noticed that he has gout started to flareup. Patient reports he took Tylenol but it does not help. Onset/Timin -: days(s) Location: left, upper extremity (shoulder, elbow) Severity scale (0 -10): 10 Quality: stabbing, aching, sharp, constant Consistency: constant Improves with: none Worsens with: movement Associated Symptoms: denies other symptoms Treatments Prior to Arrival: other (acetaminophen) - Related Data Previous Rx's Medication Instructions Recorded Last Taken Type Indomethacin 50 mg PO Q8H #15 capsule 04/17/18 Unknown Rx Colchicine [Mitigare] 0.6 mg PO DAILY PRN #20 capsule 05/26/18 Unknown Rx Losartan [Cozaar] 50 mg PO QDAY #30 tablet 05/26/18 Unknown Rx hydrALAZINE [Apresoline TAB] 25 mg PO Q8HR #90 tablet 05/26/18 Unknown Rx predniSONE [Deltasone] 10 mg PO QDAY #30 tab 05/26/18 Unknown Rx HYDROcodone/APAP 5-325 [[place] 1 each PO Q6HR PRN #14 tablet 09/03/18 Unknown Rx 5/325] Ondansetron [Zofran Odt] 4 mg PO Q8HR PRN #14 tab.rapdis 09/03/18 Unknown Rx Oseltamivir [Tamiflu] 75 mg PO BID #10 cap 09/03/18 Unknown Rx Azithromycin [Zithromax Z-STACY] 250 mg PO DAILY #6 tablet 10/02/18 Unknown Rx Prednisone [predniSONE 10 mg 10 mg PO .TAPER #1 tab.ds.pk 10/02/18 Unknown Rx (6-Day Pack, 21 Tabs)] Indomethacin 50 mg PO Q8H #15 capsule 12/19/18 Unknown Rx Prednisone [predniSONE 10 mg 10 mg PO .TAPER #1 tab.ds.pk 12/19/18 Unknown Rx (6-Day Pack, 21 Tabs)] amLODIPine [Norvasc] 10 mg PO DAILY #30 tab 12/19/18 Unknown Rx Allergies Allergy/AdvReac Type Severity Reaction Status Date / Time tramadol [From Ultram] Allergy Itching Verified 10/02/18 07:23 ED Review of Systems ROS: Stated complaint: GOUT ACHES AND PAINS Other details as noted in HPI Comment: All other systems reviewed and negative ED Past Medical Hx - Past Medical History Previous Medical History?: Yes Hx Hypertension: Yes Hx Congestive Heart Failure: No Hx Diabetes: No Hx Arthritis: Yes (gout) Hx Asthma: No Hx COPD: No Additional medical history: "sleep disorder"-no CPAP,prostate ca 2015 in remission - Surgical History Past Surgical History?: Yes Additional Surgical History: left acl repair -1989. radiation / seed implants - Social History Smoking Status: Former Smoker Substance Use Type: None - Medications Home Medications: Home Medications Medication Instructions Recorded Confirmed Last Taken Type Indomethacin 50 mg PO Q8H #15 capsule 04/17/18 05/25/18 Unknown Rx Colchicine [Mitigare] 0.6 mg PO DAILY PRN #20 capsule 05/26/18 Unknown Rx Losartan [Cozaar] 50 mg PO QDAY #30 tablet 05/26/18 Unknown Rx hydrALAZINE [Apresoline TAB] 25 mg PO Q8HR #90 tablet 05/26/18 Unknown Rx predniSONE [Deltasone] 10 mg PO QDAY #30 tab 05/26/18 Unknown Rx HYDROcodone/APAP 5-325 [[place] 1 each PO Q6HR PRN #14 tablet 09/03/18 Unknown Rx 5/325] Ondansetron [Zofran Odt] 4 mg PO Q8HR PRN #14 tab.rapdis 09/03/18 Unknown Rx Oseltamivir [Tamiflu] 75 mg PO BID #10 cap 09/03/18 Unknown Rx Azithromycin [Zithromax Z-SATCY] 250 mg PO DAILY #6 tablet 10/02/18 Unknown Rx Prednisone [predniSONE 10 mg 10 mg PO .TAPER #1 tab.ds.pk 10/02/18 Unknown Rx (6-Day Pack, 21 Tabs)] Indomethacin 50 mg PO Q8H #15 capsule 12/19/18 Unknown Rx Prednisone [predniSONE 10 mg 10 mg PO .TAPER #1 tab.ds.pk 12/19/18 Unknown Rx (6-Day Pack, 21 Tabs)] amLODIPine [Norvasc] 10 mg PO DAILY #30 tab 12/19/18 Unknown Rx ED Physical Exam - General Limitations: No Limitations General appearance: alert, in no apparent distress - Head Head exam: Present: atraumatic, normocephalic - Eye Eye exam: Present: normal appearance - ENT ENT exam: Present: mucous membranes moist - Neck Neck exam: Present: normal inspection - Respiratory Respiratory exam: Present: normal lung sounds bilaterally. Absent: respiratory distress - Cardiovascular Cardiovascular Exam: Present: tachycardia - Expanded Upper Extremity Exam Left Shoulder Exam: Present: tenderness Elbow exam: Present: tenderness, swelling, erythema, other (warm) Forearm Wrist exam: Present: normal inspection - Back Exam Back exam: Present: normal inspection - Neurological Exam Neurological exam: Present: alert, oriented X3 - Psychiatric Psychiatric exam: Present: normal affect, normal mood - Skin Skin exam: Present: warm, dry, intact, normal color. Absent: rash ED Course Vital Signs 12/19/18 05:18 Temperature 100.9 F H Pulse Rate 110 H Respiratory 20 Rate Blood Pressure 152/108 O2 Sat by Pulse 97 Oximetry ED Medical Decision Making - Medical Decision Making 260 after [place] male presents to the emergency room for left shoulder and left elbow pain for 4 days. Patient feels that this is gout has flared up. Patient was given an order for dexamethasone and Toradol injection and colchicine 1.2 mg. Patient will be discharged home on a prednisone pack indomethacin and to follow-up with a primary care provider. Critical care attestation.: If time is entered above; I have spent that time in minutes in the direct care of this critically ill patient, excluding procedure time. ED Disposition Clinical Impression: Gout flare, Hypertension Disposition: - TO HOME OR SELFCARE Is pt being admited?: No Does the pt Need Aspirin: No Condition: Stable Instructions: Acute Gouty Arthritis (ED), Hypertension (ED) Additional Instructions: He is take medications as prescribed. It is very important for me to follow up with your high blood pressure. Prescriptions: Indomethacin 50 mg PO Q8H #15 capsule amLODIPine [Norvasc] 10 mg PO DAILY #30 tab Prednisone [predniSONE 10 mg (6-Day Pack, 21 Tabs)] 10 mg PO .TAPER #1 tab.ds.pk Referrals: BRENDAN IVEYCHARLTON MD NIKA [Primary Care Provider] - 3-5 Days ENZO WALKER MD [Staff Physician] - 3-5 Days Forms: Work/School Release Form(ED)
[2018-12-19] MEDS: DECADRON IV ONE ×2 (06:53→07:12)
== END 2018-12-19 07:16 | disposition home or self-care (01) ==
LOC: ED 05:13
DX: M10.022 Idiopathic gout, left elbow (principal); I10 Essential (primary) hypertension; M10.012 Idiopathic gout, left shoulder; Z87.891 Personal history of nicotine dependence; Z88.8 Allergy status to other drugs, medicaments and biological substances; Z79.899 Other long term (current) drug therapy
CPT/HCPCS: 96372; 99282; J1100; J1885

== ENCOUNTER 2019-01-26 23:01 | Emergency (ER) | payer MEDICAID ==
[2019-01-27] MEDS ORDERED: TORADOL IM ONE (01:03)
--- NOTE | 2019-01-27 01:08 | Emergency Department Report ---
ED Upper Extremity Inj HPI - General Chief Complaint: Extremity Injury, Upper Stated Complaint: GOUT/RIGHT SIDE PAIN Time Seen by Provider: 01/27/19 00:52 Source: patient Mode of arrival: Ambulatory Limitations: No Limitations - History of Present Illness Initial Comments: 58 y.o aam with right hand swelling secondary to gouty attack. He states he run out of his medications. No fever, chills or night sweats. He has right knee swelling, redness, also secondary to gout attack. MD Complaint: Injury to:: right Onset/Timin -: days(s) Other Extremity Injury: Hand: Right Other Injuries: RLE Handedness: right Place: home Severity scale (0 -10): 9 Improves With: none Worsens With: none - Related Data Previous Rx's Medication Instructions Recorded Last Taken Type Colchicine [Mitigare] 0.6 mg PO DAILY PRN #20 capsule 05/26/18 Unknown Rx Losartan [Cozaar] 50 mg PO QDAY #30 tablet 05/26/18 Unknown Rx hydrALAZINE [Apresoline TAB] 25 mg PO Q8HR #90 tablet 05/26/18 Unknown Rx HYDROcodone/APAP 5-325 [[place] 1 each PO Q6HR PRN #14 tablet 09/03/18 Unknown Rx 5/325] Ondansetron [Zofran Odt] 4 mg PO Q8HR PRN #14 tab.rapdis 09/03/18 Unknown Rx Oseltamivir [Tamiflu] 75 mg PO BID #10 cap 09/03/18 Unknown Rx Azithromycin [Zithromax Z-STACY] 250 mg PO DAILY #6 tablet 10/02/18 Unknown Rx Prednisone [predniSONE 10 mg 10 mg PO .TAPER #1 tab.ds.pk 10/02/18 Unknown Rx (6-Day Pack, 21 Tabs)] Indomethacin 50 mg PO Q8H #15 capsule 12/19/18 Unknown Rx Prednisone [predniSONE 10 mg 10 mg PO .TAPER #1 tab.ds.pk 12/19/18 Unknown Rx (6-Day Pack, 21 Tabs)] amLODIPine [Norvasc] 10 mg PO DAILY #30 tab 12/19/18 Unknown Rx Indomethacin 50 mg PO Q8H #15 capsule 01/27/19 Unknown Rx predniSONE [Deltasone] 10 mg PO QDAY #30 tab 01/27/19 Unknown Rx Allergies Allergy/AdvReac Type Severity Reaction Status Date / Time tramadol [From Ultram] Allergy Itching Verified 10/02/18 07:23 ED Review of Systems ROS: Stated complaint: GOUT/RIGHT SIDE PAIN Other details as noted in HPI Comment: All other systems reviewed and negative Respiratory: denies: cough, orthopnea Cardiovascular: denies: chest pain, palpitations Endocrine: denies: flushing Gastrointestinal: denies: abdominal pain, nausea Musculoskeletal: joint swelling ED Past Medical Hx - Past Medical History Previous Medical History?: Yes Hx Hypertension: Yes Hx Congestive Heart Failure: No Hx Diabetes: No Hx Arthritis: Yes (gout) Hx Asthma: No Hx COPD: No Additional medical history: "sleep disorder"-no CPAP,prostate ca 2014 in remission - Surgical History Past Surgical History?: Yes Additional Surgical History: left acl repair -1989. radiation / seed implants - Social History Smoking Status: Never Smoker Substance Use Type: None - Medications Home Medications: Home Medications Medication Instructions Recorded Confirmed Last Taken Type Colchicine [Mitigare] 0.6 mg PO DAILY PRN #20 capsule 05/26/18 Unknown Rx Losartan [Cozaar] 50 mg PO QDAY #30 tablet 05/26/18 Unknown Rx hydrALAZINE [Apresoline TAB] 25 mg PO Q8HR #90 tablet 05/26/18 Unknown Rx HYDROcodone/APAP 5-325 [[place] 1 each PO Q6HR PRN #14 tablet 09/03/18 Unknown Rx 5/325] Ondansetron [Zofran Odt] 4 mg PO Q8HR PRN #14 tab.rapdis 09/03/18 Unknown Rx Oseltamivir [Tamiflu] 75 mg PO BID #10 cap 09/03/18 Unknown Rx Azithromycin [Zithromax Z-STACY] 250 mg PO DAILY #6 tablet 10/02/18 Unknown Rx Prednisone [predniSONE 10 mg 10 mg PO .TAPER #1 tab.ds.pk 10/02/18 Unknown Rx (6-Day Pack, 21 Tabs)] Indomethacin 50 mg PO Q8H #15 capsule 12/19/18 Unknown Rx Prednisone [predniSONE 10 mg 10 mg PO .TAPER #1 tab.ds.pk 12/19/18 Unknown Rx (6-Day Pack, 21 Tabs)] amLODIPine [Norvasc] 10 mg PO DAILY #30 tab 12/19/18 Unknown Rx Indomethacin 50 mg PO Q8H #15 capsule 01/27/19 Unknown Rx predniSONE [Deltasone] 10 mg PO QDAY #30 tab 01/27/19 Unknown Rx ED Physical Exam - General Limitations: No Limitations General appearance: alert, in no apparent distress - Head Head exam: Present: atraumatic, normocephalic - Eye Eye exam: Present: normal appearance, PERRL, EOMI Pupils: Present: normal accommodation - ENT ENT exam: Present: normal exam, normal orophraynx - Neck Neck exam: Present: normal inspection - Respiratory Respiratory exam: Present: normal lung sounds bilaterally - Cardiovascular Cardiovascular Exam: Present: regular rate - GI/Abdominal GI/Abdominal exam: Present: soft - Extremities Exam Extremities exam: Present: tenderness (right hand), other (right knee swelling) ED Course Vital Signs 01/26/19 23:38 Temperature 98.3 F Pulse Rate 63 Respiratory 18 Rate Blood Pressure 166/105 O2 Sat by Pulse 98 Oximetry ED Medical Decision Making - Medical Decision Making given toradol im, feels better d/c home with colchicine, steroids. - Differential Diagnosis cellulitis, abscess, gout Critical care attestation.: If time is entered above; I have spent that time in minutes in the direct care of this critically ill patient, excluding procedure time. ED Disposition Clinical Impression: Polyarticular gout Gout flare Qualifiers: Gout site: hand Gout etiology: other secondary cause Laterality: right Qualified Code(s): M10.441 - Other secondary gout, right hand Disposition: DC-01 TO HOME OR SELFCARE Is pt being admited?: No Does the pt Need Aspirin: No Condition: Stable Prescriptions: predniSONE [Deltasone] 10 mg PO QDAY #30 tab Indomethacin 50 mg PO Q8H #15 capsule Referrals: JUANCHO GUEVARA MD [Primary Care Provider] - 3-5 Days
[2019-01-27 01:24] VITALS: BP 156/107
== END 2019-01-27 01:23 | disposition home or self-care (01) ==
LOC: ED 23:01
DX: M10.441 Other secondary gout, right hand (principal); I10 Essential (primary) hypertension; G47.30 Sleep apnea, unspecified; Z98.890 Other specified postprocedural states; Z88.5 Allergy status to narcotic agent; Z79.899 Other long term (current) drug therapy
CPT/HCPCS: 96372; 99282; J1885

== ENCOUNTER 2019-02-08 09:11 | Emergency (ER) | payer MEDICAID ==
[2019-02-08 09:22] VITALS: BP 174/121
--- NOTE | 2019-02-08 09:43 | Emergency Department Report ---
ED General Adult HPI - General Chief complaint: Extremity Injury, Lower Stated complaint: GOUT Time Seen by Provider: 02/08/19 09:37 Source: patient Mode of arrival: Wheelchair Limitations: No Limitations - History of Present Illness Initial comments: Patient is 58-year-old male with history of gout. Patient presented to the ER complaining of bilateral hands and feet. Patient stated that this is typical for his gout flareup. Patient is taking colchicine and Indocin and he is out of his medication. Patient denied any other complaint. - Related Data Previous Rx's Medication Instructions Recorded Last Taken Type Colchicine [Mitigare] 0.6 mg PO DAILY PRN #20 capsule 05/26/18 Unknown Rx Losartan [Cozaar] 50 mg PO QDAY #30 tablet 05/26/18 Unknown Rx hydrALAZINE [Apresoline TAB] 25 mg PO Q8HR #90 tablet 05/26/18 Unknown Rx HYDROcodone/APAP 5-325 [[place] 1 each PO Q6HR PRN #14 tablet 09/03/18 Unknown Rx 5/325] Ondansetron [Zofran Odt] 4 mg PO Q8HR PRN #14 tab.rapdis 09/03/18 Unknown Rx Oseltamivir [Tamiflu] 75 mg PO BID #10 cap 09/03/18 Unknown Rx Azithromycin [Zithromax Z-STACY] 250 mg PO DAILY #6 tablet 10/02/18 Unknown Rx Prednisone [predniSONE 10 mg 10 mg PO .TAPER #1 tab.ds.pk 10/02/18 Unknown Rx (6-Day Pack, 21 Tabs)] Indomethacin 50 mg PO Q8H #15 capsule 12/19/18 Unknown Rx Prednisone [predniSONE 10 mg 10 mg PO .TAPER #1 tab.ds.pk 12/19/18 Unknown Rx (6-Day Pack, 21 Tabs)] amLODIPine [Norvasc] 10 mg PO DAILY #30 tab 12/19/18 Unknown Rx Indomethacin 50 mg PO Q8H #15 capsule 01/27/19 Unknown Rx predniSONE [Deltasone] 10 mg PO QDAY #30 tab 01/27/19 Unknown Rx Allergies Allergy/AdvReac Type Severity Reaction Status Date / Time tramadol [From Ultram] Allergy Itching Verified 10/02/18 07:23 ED Review of Systems ROS: Stated complaint: GOUT Other details as noted in HPI Comment: All other systems reviewed and negative ENT: denies: throat pain Gastrointestinal: denies: abdominal pain, nausea Musculoskeletal: denies: back pain ED Past Medical Hx - Past Medical History Previous Medical History?: Yes Hx Hypertension: Yes Hx Congestive Heart Failure: No Hx Diabetes: No Hx Arthritis: Yes (gout) Hx Asthma: No Hx COPD: No Additional medical history: "sleep disorder"-no CPAP,prostate ca 2015 in remission - Surgical History Past Surgical History?: Yes Additional Surgical History: left acl repair -1989. radiation / seed implants - Social History Smoking Status: Never Smoker Substance Use Type: None - Medications Home Medications: Home Medications Medication Instructions Recorded Confirmed Last Taken Type Colchicine [Mitigare] 0.6 mg PO DAILY PRN #20 capsule 05/26/18 Unknown Rx Losartan [Cozaar] 50 mg PO QDAY #30 tablet 05/26/18 Unknown Rx hydrALAZINE [Apresoline TAB] 25 mg PO Q8HR #90 tablet 05/26/18 Unknown Rx HYDROcodone/APAP 5-325 [[place] 1 each PO Q6HR PRN #14 tablet 09/03/18 Unknown Rx 5/325] Ondansetron [Zofran Odt] 4 mg PO Q8HR PRN #14 tab.rapdis 09/03/18 Unknown Rx Oseltamivir [Tamiflu] 75 mg PO BID #10 cap 09/03/18 Unknown Rx Azithromycin [Zithromax Z-STACY] 250 mg PO DAILY #6 tablet 10/02/18 Unknown Rx Prednisone [predniSONE 10 mg 10 mg PO .TAPER #1 tab.ds.pk 10/02/18 Unknown Rx (6-Day Pack, 21 Tabs)] Indomethacin 50 mg PO Q8H #15 capsule 12/19/18 Unknown Rx Prednisone [predniSONE 10 mg 10 mg PO .TAPER #1 tab.ds.pk 12/19/18 Unknown Rx (6-Day Pack, 21 Tabs)] amLODIPine [Norvasc] 10 mg PO DAILY #30 tab 12/19/18 Unknown Rx Indomethacin 50 mg PO Q8H #15 capsule 01/27/19 Unknown Rx predniSONE [Deltasone] 10 mg PO QDAY #30 tab 01/27/19 Unknown Rx ED Physical Exam - General Limitations: No Limitations General appearance: alert, in no apparent distress - Head Head exam: Present: atraumatic, normocephalic, normal inspection - ENT ENT exam: Present: normal exam, normal orophraynx, mucous membranes moist - Neck Neck exam: Present: normal inspection. Absent: tenderness - Respiratory Respiratory exam: Present: normal lung sounds bilaterally - Cardiovascular Cardiovascular Exam: Present: normal heart sounds - Extremities Exam Extremities exam: Present: normal inspection, full ROM, tenderness, normal capillary refill - Neurological Exam Neurological exam: Present: alert, oriented X3 ED Course Vital Signs 02/08/19 09:21 Temperature 98.2 F Pulse Rate 78 Respiratory 16 Rate Blood Pressure 174/121 O2 Sat by Pulse 98 Oximetry Critical care attestation.: If time is entered above; I have spent that time in minutes in the direct care of this critically ill patient, excluding procedure time. ED Disposition Clinical Impression: Gout flare Disposition: DC-01 TO HOME OR SELFCARE Is pt being admited?: No Condition: Stable Instructions: Acute Gouty Arthritis (ED) Referrals: [facility] [Provider Group] - 3-5 Days
== END 2019-02-08 10:06 | disposition home or self-care (01) ==
LOC: ED 09:11
DX: M10.042 Idiopathic gout, left hand (principal); M10.041 Idiopathic gout, right hand; M10.072 Idiopathic gout, left ankle and foot; M10.071 Idiopathic gout, right ankle and foot; I10 Essential (primary) hypertension; M19.90 Unspecified osteoarthritis, unspecified site; Z98.890 Other specified postprocedural states; Z79.899 Other long term (current) drug therapy; Z88.6 Allergy status to analgesic agent
CPT/HCPCS: 99281

== ENCOUNTER 2019-04-14 22:20 | Emergency (ER) | payer MEDICAID ==
[2019-04-14] MEDS ORDERED: KETOROLAC 30 MG/1 ML INJ IM ONE (23:11)
[2019-04-14] MEDS ORDERED: HYDROcodone/ACETAMINOPHEN 7.5-325MG TAB PO ONE (23:11)
[2019-04-14] MEDS ORDERED: methylPREDNISolone Sod Succinate 125 MG/2 ML INJ IM ONE (23:11)
[2019-04-14] MEDS ORDERED: COLCHICINE 0.6 MG CAP PO ONE (23:11)
--- NOTE | 2019-04-14 23:23 | Emergency Department Report ---
ED Extremity Problem HPI - General Chief complaint: Extremity Problem,Nontraumatic Stated complaint: GOUT IN HANDS/KNEES/ELBOW Time Seen by Provider: 04/14/19 23:10 Source: patient Mode of arrival: Ambulatory Limitations: No Limitations - History of Present Illness Initial comments: 59-year-old -[place] male presents to the emergency room for a gout flare 1-1/2 weeks. Patient reports it is in his knee right hand and right wrist. Patient is taking nothing for the pain. Patient is noncompliant on his blood pressure medication and was noted to have a blood pressure 170/110 in triage. Patient reports he takes a losartan a headache completed amlodipine back in November and never followed up to have a refill. MD Complaint: extremity pain, extremity swelling Location: right, upper extremity, other (hand and wrist) History of Same: Yes -: Yes arthralgia Quality: aching Consistency: constant Worsens with: nothing - Related Data Previous Rx's Medication Instructions Recorded Last Taken Type Colchicine [Mitigare] 0.6 mg PO DAILY PRN #20 capsule 05/26/18 Unknown Rx Losartan [Cozaar] 50 mg PO QDAY #30 tablet 05/26/18 Unknown Rx hydrALAZINE [Apresoline TAB] 25 mg PO Q8HR #90 tablet 05/26/18 Unknown Rx HYDROcodone/APAP 5-325 [[place] 1 each PO Q6HR PRN #14 tablet 09/03/18 Unknown Rx 5/325] Ondansetron [Zofran Odt] 4 mg PO Q8HR PRN #14 tab.rapdis 09/03/18 Unknown Rx Oseltamivir [Tamiflu] 75 mg PO BID #10 cap 09/03/18 Unknown Rx Azithromycin [Zithromax Z-STACY] 250 mg PO DAILY #6 tablet 10/02/18 Unknown Rx Prednisone [predniSONE 10 mg 10 mg PO .TAPER #1 tab.ds.pk 12/19/18 Unknown Rx (6-Day Pack, 21 Tabs)] amLODIPine [Norvasc] 10 mg PO DAILY #30 tab 12/19/18 Unknown Rx Indomethacin 50 mg PO Q8H #15 capsule 01/27/19 Unknown Rx predniSONE [Deltasone] 10 mg PO QDAY #30 tab 01/27/19 Unknown Rx Indomethacin [Indocin] 25 mg PO Q8H PRN #30 capsule 02/08/19 Unknown Rx Prednisone [predniSONE 10 mg 10 mg PO .TAPER #1 tab.ds.pk 02/08/19 Unknown Rx (6-Day Pack, 21 Tabs)] Colchicine 0.6 mg PO BID PRN #15 capsule 04/14/19 Unknown Rx Indomethacin 50 mg PO Q8H #15 capsule 04/14/19 Unknown Rx Prednisone [predniSONE 10 mg 10 mg PO .TAPER #1 tab.ds.pk 04/14/19 Unknown Rx (6-Day Pack, 21 Tabs)] Allergies Allergy/AdvReac Type Severity Reaction Status Date / Time tramadol [From Ultram] Allergy Itching Verified 10/02/18 07:23 ED Review of Systems ROS: Stated complaint: GOUT IN HANDS/KNEES/ELBOW Other details as noted in HPI Comment: All other systems reviewed and negative ED Past Medical Hx - Past Medical History Hx Hypertension: Yes Hx Congestive Heart Failure: No Hx Diabetes: No Hx Arthritis: Yes (gout) Hx Asthma: No Hx COPD: No Additional medical history: "sleep disorder"-no CPAP,prostate ca 2014 in remission - Surgical History Additional Surgical History: left acl repair -1989. radiation / seed implants - Social History Smoking Status: Never Smoker - Medications Home Medications: Home Medications Medication Instructions Recorded Confirmed Last Taken Type Colchicine [Mitigare] 0.6 mg PO DAILY PRN #20 capsule 05/26/18 Unknown Rx Losartan [Cozaar] 50 mg PO QDAY #30 tablet 05/26/18 Unknown Rx hydrALAZINE [Apresoline TAB] 25 mg PO Q8HR #90 tablet 05/26/18 Unknown Rx HYDROcodone/APAP 5-325 [[place] 1 each PO Q6HR PRN #14 tablet 09/03/18 Unknown Rx 5/325] Ondansetron [Zofran Odt] 4 mg PO Q8HR PRN #14 tab.rapdis 09/03/18 Unknown Rx Oseltamivir [Tamiflu] 75 mg PO BID #10 cap 09/03/18 Unknown Rx Azithromycin [Zithromax Z-STACY] 250 mg PO DAILY #6 tablet 10/02/18 Unknown Rx Prednisone [predniSONE 10 mg 10 mg PO .TAPER #1 tab.ds.pk 12/19/18 Unknown Rx (6-Day Pack, 21 Tabs)] amLODIPine [Norvasc] 10 mg PO DAILY #30 tab 12/19/18 Unknown Rx Indomethacin 50 mg PO Q8H #15 capsule 01/27/19 Unknown Rx predniSONE [Deltasone] 10 mg PO QDAY #30 tab 01/27/19 Unknown Rx Indomethacin [Indocin] 25 mg PO Q8H PRN #30 capsule 02/08/19 Unknown Rx Prednisone [predniSONE 10 mg 10 mg PO .TAPER #1 tab.ds.pk 02/08/19 Unknown Rx (6-Day Pack, 21 Tabs)] Colchicine 0.6 mg PO BID PRN #15 capsule 04/14/19 Unknown Rx Indomethacin 50 mg PO Q8H #15 capsule 04/14/19 Unknown Rx Prednisone [predniSONE 10 mg 10 mg PO .TAPER #1 tab.ds.pk 04/14/19 Unknown Rx (6-Day Pack, 21 Tabs)] ED Physical Exam - General Limitations: No Limitations General appearance: alert, in no apparent distress - Head Head exam: Present: atraumatic, normocephalic - Eye Eye exam: Present: normal appearance - ENT ENT exam: Present: mucous membranes moist - Neck Neck exam: Present: normal inspection, full ROM - Expanded Upper Extremity Exam Right Shoulder Exam: Present: normal inspection, full ROM Upper Arm exam: Present: normal inspection, full ROM Elbow exam: Present: full ROM, swelling. Absent: tenderness Forearm Wrist exam: Present: normal inspection, full ROM Hand Wrist exam: Present: tenderness, swelling, erythema Neuro motor exam: Present: wrist extension intact, thumb opposition intact, thumb IP flexion intact Vascular: Present: vascular compromise - Expanded Lower Extremity Exam Right Knee exam: Present: full ROM, tenderness, swelling Left Hip exam: Present: normal inspection Upper Leg exam: Present: normal inspection, full ROM Knee exam: Present: full ROM, tenderness, swelling Lower Leg exam: Present: normal inspection, full ROM - Back Exam Back exam: Present: normal inspection - Neurological Exam Neurological exam: Present: alert, oriented X3 - Psychiatric Psychiatric exam: Present: normal affect, normal mood - Skin Skin exam: Present: warm, dry, intact, normal color. Absent: rash ED Course Vital Signs 04/14/19 22:33 Temperature 99.1 F Pulse Rate 102 H Respiratory 16 Rate Blood Pressure 170/110 O2 Sat by Pulse 94 Oximetry ED Medical Decision Making - Medical Decision Making 59-year-old -[place] male presents to the emergency room for a gout flare 1-1/2 weeks. Patient reports it is in his knee right hand and right wrist. Patient is taking nothing for the pain. Patient is noncompliant on his blood pressure medication and was noted to have a blood pressure 170/110 in triage. Patient reports he takes a losartan a headache completed amlodipine back in November and never followed up to have a refill. Gout: Colchicine 1.2 mg, Solu-Medrol 1.25 mg IM [place] 5/325 and Toradol 30 mg IM she'll be discharged home on indomethacin 50 mg twice a day colchicine 0.6 mg daily for next 5 days and prednisone 40 mg by mouth for 4 days. Patient be referred again to a primary care provider Critical care attestation.: If time is entered above; I have spent that time in minutes in the direct care of this critically ill patient, excluding procedure time. ED Disposition Clinical Impression: Polyarticular gout Hypertension Qualifiers: Hypertension type: unspecified Qualified Code(s): I10 - Essential (primary) hypertension Disposition: TO HOME OR SELFCARE Is pt being admited?: No Does the pt Need Aspirin: No Condition: Stable Instructions: Acute Gouty Arthritis (ED), Hypertension (ED) Additional Instructions: Follow up with a primary care provider I have listed several below for your convenience. Prescriptions: Colchicine 0.6 mg PO BID PRN #15 capsule PRN Reason: Pain , Severe (7-10) Indomethacin 50 mg PO Q8H #15 capsule Prednisone [predniSONE 10 mg (6-Day Pack, 21 Tabs)] 10 mg PO .TAPER #1 tab.ds.pk Referrals: [facility] [Outside] - 3-[address] [facility] [Outside] - 3-5 Days ENZO WALKER MD [Staff Physician] - 3-5 Days
[2019-04-14 23:56] VITALS: BP 158/112
== END 2019-04-14 23:50 | disposition home or self-care (01) ==
LOC: ED 22:20
DX: M10.9 Gout, unspecified (principal); I10 Essential (primary) hypertension; Z88.6 Allergy status to analgesic agent; Z98.890 Other specified postprocedural states; Z79.899 Other long term (current) drug therapy
CPT/HCPCS: 96372; 99282; J1885; J2930

== ENCOUNTER 2019-04-21 21:09 | Emergency (ER) | payer MEDICAID ==
--- NOTE | 2019-04-21 21:44 | Event Note ---
ED Screening Note Date of service: 04/21/19 Time: 21:41 ED Screening Note: 59 y o male recent visit to [place] presents to ed with red blotches on arms, trunk and legs x 2 days non itching target lesion on trunk? took hydrocodone for arthritis pain 2 days ago This initial assessment/diagnostic orders/clinical plan/treatment(s) is/are subject to change based on patients health status, clinical progression and re- assessment by fellow clinical providers in the ED. Further treatment and workup at subsequent clinical providers discretion. Patient/guardian urged not to elope from the ED as their condition may be serious if not clinically assessed and managed. Initial orders include: decadron acc eval antibiotics?
[2019-04-22] MEDS ORDERED: diphenhydrAMINE 25 MG CAP PO ONE (00:02)
[2019-04-22] MEDS ORDERED: dexAMETHasone 20 MG/5 ML VIAL IV ONE (00:02)
[2019-04-22] MEDS ORDERED: FAMOTIDINE 20 MG TAB PO ONE (00:02)
--- NOTE | 2019-04-22 00:07 | Emergency Department Report ---
- General Chief complaint: Skin Rash Stated complaint: RASH Time Seen by Provider: 04/21/19 21:39 Source: patient Mode of arrival: Ambulatory Limitations: No Limitations - History of Present Illness Initial comments: Patient is a 59-year-old male presents to emergency room with complaints of a diffuse rash that began 2 days ago. The rash is itching. He denies any new soaps, detergents, lotions, foods, medications. Patient states that he just recently traveled to [facility]. He denies any fever, nausea, vomiting, chills, diarrhea, any other symptoms. he denies eating any seafood. - Related Data Previous Rx's Medication Instructions Recorded Last Taken Type Colchicine [Mitigare] 0.6 mg PO DAILY PRN #20 capsule 05/26/18 Unknown Rx Losartan [Cozaar] 50 mg PO QDAY #30 tablet 05/26/18 Unknown Rx hydrALAZINE [Apresoline TAB] 25 mg PO Q8HR #90 tablet 05/26/18 Unknown Rx HYDROcodone/APAP 5-325 [[place] 1 each PO Q6HR PRN #14 tablet 09/03/18 Unknown Rx 5/325] Ondansetron [Zofran Odt] 4 mg PO Q8HR PRN #14 tab.rapdis 09/03/18 Unknown Rx Oseltamivir [Tamiflu] 75 mg PO BID #10 cap 09/03/18 Unknown Rx Azithromycin [Zithromax Z-STACY] 250 mg PO DAILY #6 tablet 10/02/18 Unknown Rx Prednisone [predniSONE 10 mg 10 mg PO .TAPER #1 tab.ds.pk 12/19/18 Unknown Rx (6-Day Pack, 21 Tabs)] amLODIPine [Norvasc] 10 mg PO DAILY #30 tab 12/19/18 Unknown Rx Indomethacin 50 mg PO Q8H #15 capsule 01/27/19 Unknown Rx predniSONE [Deltasone] 10 mg PO QDAY #30 tab 01/27/19 Unknown Rx Indomethacin [Indocin] 25 mg PO Q8H PRN #30 capsule 02/08/19 Unknown Rx Prednisone [predniSONE 10 mg 10 mg PO .TAPER #1 tab.ds.pk 02/08/19 Unknown Rx (6-Day Pack, 21 Tabs)] Colchicine 0.6 mg PO BID PRN #15 capsule 04/14/19 Unknown Rx Indomethacin 50 mg PO Q8H #15 capsule 04/14/19 Unknown Rx Prednisone [predniSONE 10 mg 10 mg PO .TAPER #1 tab.ds.pk 04/14/19 Unknown Rx (6-Day Pack, 21 Tabs)] Hydrocortisone [Hydrocortisone 1 applicatio TP BID 7 Days #1 04/22/19 Unknown Rx 2.5% OINT] oint...g. diphenhydrAMINE [Benadryl CAP] 25 mg PO Q6HR PRN #14 capsule 04/22/19 Unknown Rx Allergies Allergy/AdvReac Type Severity Reaction Status Date / Time tramadol [From Ultram] Allergy Itching Verified 10/02/18 07:23 Abscess Boil HPI - HPI Chief Complaint: Skin Rash Stated Complaint: RASH Time Seen by Provider: 04/21/19 21:39 Home Medications: Previous Rx's Medication Instructions Recorded Last Taken Type Colchicine [Mitigare] 0.6 mg PO DAILY PRN #20 capsule 05/26/18 Unknown Rx Losartan [Cozaar] 50 mg PO QDAY #30 tablet 05/26/18 Unknown Rx hydrALAZINE [Apresoline TAB] 25 mg PO Q8HR #90 tablet 05/26/18 Unknown Rx HYDROcodone/APAP 5-325 [[place] 1 each PO Q6HR PRN #14 tablet 09/03/18 Unknown Rx 5/325] Ondansetron [Zofran Odt] 4 mg PO Q8HR PRN #14 tab.rapdis 09/03/18 Unknown Rx Oseltamivir [Tamiflu] 75 mg PO BID #10 cap 09/03/18 Unknown Rx Azithromycin [Zithromax Z-STACY] 250 mg PO DAILY #6 tablet 10/02/18 Unknown Rx Prednisone [predniSONE 10 mg 10 mg PO .TAPER #1 tab.ds.pk 12/19/18 Unknown Rx (6-Day Pack, 21 Tabs)] amLODIPine [Norvasc] 10 mg PO DAILY #30 tab 12/19/18 Unknown Rx Indomethacin 50 mg PO Q8H #15 capsule 01/27/19 Unknown Rx predniSONE [Deltasone] 10 mg PO QDAY #30 tab 01/27/19 Unknown Rx Indomethacin [Indocin] 25 mg PO Q8H PRN #30 capsule 02/08/19 Unknown Rx Prednisone [predniSONE 10 mg 10 mg PO .TAPER #1 tab.ds.pk 02/08/19 Unknown Rx (6-Day Pack, 21 Tabs)] Colchicine 0.6 mg PO BID PRN #15 capsule 04/14/19 Unknown Rx Indomethacin 50 mg PO Q8H #15 capsule 04/14/19 Unknown Rx Prednisone [predniSONE 10 mg 10 mg PO .TAPER #1 tab.ds.pk 04/14/19 Unknown Rx (6-Day Pack, 21 Tabs)] Hydrocortisone [Hydrocortisone 1 applicatio TP BID 7 Days #1 04/22/19 Unknown Rx 2.5% OINT] oint...g. diphenhydrAMINE [Benadryl CAP] 25 mg PO Q6HR PRN #14 capsule 04/22/19 Unknown Rx Allergies/Adverse Reactions: Allergies Allergy/AdvReac Type Severity Reaction Status Date / Time tramadol [From [facility]] Allergy Itching Verified 10/02/18 07:23 ED Review of Systems ROS: Stated complaint: RASH Other details as noted in HPI Comment: All other systems reviewed and negative ED Past Medical Hx - Past Medical History Previous Medical History?: Yes Hx Hypertension: Yes Hx Congestive Heart Failure: No Hx Diabetes: No Hx Arthritis: Yes (gout) Hx Asthma: No Hx COPD: No Additional medical history: "sleep disorder"-no CPAP,prostate ca 2014 in remission - Surgical History Past Surgical History?: Yes Additional Surgical History: left acl repair -1989. radiation / seed implants - Social History Smoking Status: Never Smoker Substance Use Type: None - Medications Home Medications: Home Medications Medication Instructions Recorded Confirmed Last Taken Type Colchicine [Mitigare] 0.6 mg PO DAILY PRN #20 capsule 05/26/18 Unknown Rx Losartan [Cozaar] 50 mg PO QDAY #30 tablet 05/26/18 Unknown Rx hydrALAZINE [Apresoline TAB] 25 mg PO Q8HR #90 tablet 05/26/18 Unknown Rx HYDROcodone/APAP 5-325 [[place] 1 each PO Q6HR PRN #14 tablet 09/03/18 Unknown Rx 5/325] Ondansetron [Zofran Odt] 4 mg PO Q8HR PRN #14 tab.rapdis 09/03/18 Unknown Rx Oseltamivir [Tamiflu] 75 mg PO BID #10 cap 09/03/18 Unknown Rx Azithromycin [Zithromax Z-STACY] 250 mg PO DAILY #6 tablet 10/02/18 Unknown Rx Prednisone [predniSONE 10 mg 10 mg PO .TAPER #1 tab.ds.pk 12/19/18 Unknown Rx (6-Day Pack, 21 Tabs)] amLODIPine [Norvasc] 10 mg PO DAILY #30 tab 12/19/18 Unknown Rx Indomethacin 50 mg PO Q8H #15 capsule 01/27/19 Unknown Rx predniSONE [Deltasone] 10 mg PO QDAY #30 tab 01/27/19 Unknown Rx Indomethacin [Indocin] 25 mg PO Q8H PRN #30 capsule 02/08/19 Unknown Rx Prednisone [predniSONE 10 mg 10 mg PO .TAPER #1 tab.ds.pk 02/08/19 Unknown Rx (6-Day Pack, 21 Tabs)] Colchicine 0.6 mg PO BID PRN #15 capsule 04/14/19 Unknown Rx Indomethacin 50 mg PO Q8H #15 capsule 04/14/19 Unknown Rx Prednisone [predniSONE 10 mg 10 mg PO .TAPER #1 tab.ds.pk 04/14/19 Unknown Rx (6-Day Pack, 21 Tabs)] Hydrocortisone [Hydrocortisone 1 applicatio TP BID 7 Days #1 04/22/19 Unknown Rx 2.5% OINT] oint...g. diphenhydrAMINE [Benadryl CAP] 25 mg PO Q6HR PRN #14 capsule 04/22/19 Unknown Rx ED Physical Exam - General Limitations: No Limitations General appearance: alert, in no apparent distress - Head Head exam: Present: atraumatic, normocephalic - Eye Eye exam: Present: normal appearance - ENT ENT exam: Present: mucous membranes moist - Respiratory Respiratory exam: Present: normal lung sounds bilaterally. Absent: respiratory distress, wheezes, rales, rhonchi, stridor, chest wall tenderness, accessory muscle use, decreased breath sounds, prolonged expiratory - Cardiovascular Cardiovascular Exam: Present: regular rate, normal rhythm, normal heart sounds. Absent: systolic murmur, diastolic murmur, rubs, gallop - Neurological Exam Neurological exam: Present: alert, oriented X3 - Psychiatric Psychiatric exam: Present: normal affect, normal mood - Skin Skin exam: Present: warm, dry, rash (diffuse rash with small erythematous papules, no blistering, no skin denuding, no scaling, no necrosis) ED Course Vital Signs 04/21/19 04/22/19 21:32 01:01 Temperature 98.6 F Pulse Rate 111 H 75 Respiratory 18 18 Rate Blood Pressure 142/107 Blood Pressure 140/106 [Right] O2 Sat by Pulse 99 98 Oximetry ED Medical Decision Making - Medical Decision Making Patient is a 59-year-old male presents to emergency room with complaints of a diffuse rash that began 2 days ago. The rash is itching. He denies any new soaps, detergents, lotions, foods, medications. Patient states that he just recently traveled to [facility]. He denies any fever, nausea, vomit ing, chills, diarrhea, any other symptoms. he denies eating any seafood. pt has PMHx of HTN. on exam: diffuse rash with small erythematous papules, no blistering, no skin denuding, no scaling, no necrosis. pt given dexamethasone, Pepcid, Benadryl in the emergency department. given prescription for Benadryl and hydrocortisone ointment. advised pt to please use medication as prescribed. may also used calamine lotion [id number] for itching. Follow-up with a primary care doctor in the next 2-3 days for reexamination. Return to the emergency room for any new or worsening symptoms. Critical care attestation.: If time is entered above; I have spent that time in minutes in the direct care of this critically ill patient, excluding procedure time. ED Disposition Clinical Impression: Rash Disposition: DC-01 TO HOME OR SELFCARE Is pt being admited?: No Does the pt Need Aspirin: No Condition: Stable Instructions: Acute Rash (ED) Additional Instructions: Please use medication as prescribed. may also used calamine lotion [id number] for itching. Follow-up with a primary care doctor in the next 2-3 days for reexamination. Return to the emergency room for any new or worsening symptoms. Prescriptions: diphenhydrAMINE [Benadryl CAP] 25 mg PO Q6HR PRN #14 capsule PRN Reason: itching Hydrocortisone [Hydrocortisone 2.5% OINT] 1 applicatio TP BID 7 Days #1 oint...g. Referrals: [facility] [Provider Group] - 2-3 Days Time of Disposition: 00:06 Print Language: CZECH
[2019-04-22] MEDS ORDERED: dexAMETHasone 20 MG/5 ML VIAL IM ONE (01:00)
[2019-04-22 01:03] VITALS: BP 140/106
== END 2019-04-22 01:01 | disposition home or self-care (01) ==
LOC: ED 21:09
DX: R21 Rash and other nonspecific skin eruption (principal); I10 Essential (primary) hypertension; M10.9 Gout, unspecified; G47.30 Sleep apnea, unspecified; Z88.5 Allergy status to narcotic agent; Z79.899 Other long term (current) drug therapy; Z98.890 Other specified postprocedural states
CPT/HCPCS: 96372; 99282; J1100

== ENCOUNTER 2019-05-11 23:44 | Emergency (ER) | payer MEDICAID ==
[2019-05-12] MEDS ORDERED: SOLU-Medrol IM ONE (02:07)
[2019-05-12] MEDS ORDERED: PERCOCET 5/325 PO ONE (02:07)
--- NOTE | 2019-05-12 02:19 | Emergency Department Report ---
ED General Adult HPI - General Chief complaint: Extremity Injury, Upper Stated complaint: GOUT FLARE UP IN SHOULDERS ELBOWS WRIST AND HANDS Time Seen by Provider: 05/12/19 01:26 Source: patient Mode of arrival: Ambulatory Limitations: No Limitations - History of Present Illness Initial comments: 59 y/o male with PMH of Gout presents to ED c/o of a gout flare up to joints and requesting pain medications to resolve for flare. DeniesTrauma. -: Gradual, days(s) (2) Location: head Radiation: non-radiation Quality: aching, dull Consistency: constant Improves with: none Worsens with: movement Associated Symptoms: denies other symptoms. denies: confusion, chest pain Treatments Prior to Arrival: none - Related Data Previous Rx's Medication Instructions Recorded Last Taken Type Colchicine [Mitigare] 0.6 mg PO DAILY PRN #20 capsule 05/26/18 Unknown Rx Losartan [Cozaar] 50 mg PO QDAY #30 tablet 05/26/18 Unknown Rx hydrALAZINE [Apresoline TAB] 25 mg PO Q8HR #90 tablet 05/26/18 Unknown Rx HYDROcodone/APAP 5-325 [[place] 1 each PO Q6HR PRN #14 tablet 09/03/18 Unknown Rx 5/325] Ondansetron [Zofran Odt] 4 mg PO Q8HR PRN #14 tab.rapdis 09/03/18 Unknown Rx Oseltamivir [Tamiflu] 75 mg PO BID #10 cap 09/03/18 Unknown Rx Azithromycin [Zithromax Z-STACY] 250 mg PO DAILY #6 tablet 10/02/18 Unknown Rx Prednisone [predniSONE 10 mg 10 mg PO .TAPER #1 tab.ds.pk 12/19/18 Unknown Rx (6-Day Pack, 21 Tabs)] amLODIPine 10 mg PO DAILY #30 tab 12/19/18 Unknown Rx Indomethacin 50 mg PO Q8H #15 capsule 01/27/19 Unknown Rx predniSONE [Deltasone] 10 mg PO QDAY #30 tab 01/27/19 Unknown Rx Indomethacin [Indocin] 25 mg PO Q8H PRN #30 capsule 02/08/19 Unknown Rx Prednisone [predniSONE 10 mg 10 mg PO .TAPER #1 tab.ds.pk 02/08/19 Unknown Rx (6-Day Pack, 21 Tabs)] Colchicine 0.6 mg PO BID PRN #15 capsule 04/14/19 Unknown Rx Indomethacin 50 mg PO Q8H #15 capsule 04/14/19 Unknown Rx Prednisone [predniSONE 10 mg 10 mg PO .TAPER #1 tab.ds.pk 04/14/19 Unknown Rx (6-Day Pack, 21 Tabs)] Hydrocortisone [Hydrocortisone 1 applicatio TP BID 7 Days #1 04/22/19 Unknown Rx 2.5% OINT] oint...g. diphenhydrAMINE [Benadryl CAP] 25 mg PO Q6HR PRN #14 capsule 04/22/19 Unknown Rx Colchicine 0.6 mg PO Q2HR #14 capsule 05/12/19 Unknown Rx predniSONE [Deltasone] 50 mg PO QDAY #5 tab 05/12/19 Unknown Rx Allergies Allergy/AdvReac Type Severity Reaction Status Date / Time tramadol [From Ultram] Allergy Itching Verified 10/02/18 07:23 ED Review of Systems ROS: Stated complaint: GOUT FLARE UP IN SHOULDERS ELBOWS WRIST AND HANDS Other details as noted in HPI Comment: All other systems reviewed and negative ED Past Medical Hx - Past Medical History Previous Medical History?: Yes Hx Hypertension: Yes Hx Congestive Heart Failure: No Hx Diabetes: No Hx Arthritis: Yes (gout) Hx Asthma: No Hx COPD: No Additional medical history: "sleep disorder"-no CPAP,prostate ca 2014 in remission - Surgical History Past Surgical History?: Yes Additional Surgical History: left acl repair -1989. radiation / seed implants - Social History Smoking Status: Never Smoker Substance Use Type: None - Medications Home Medications: Home Medications Medication Instructions Recorded Confirmed Last Taken Type Colchicine [Mitigare] 0.6 mg PO DAILY PRN #20 capsule 05/26/18 Unknown Rx Losartan [Cozaar] 50 mg PO QDAY #30 tablet 05/26/18 Unknown Rx hydrALAZINE [Apresoline TAB] 25 mg PO Q8HR #90 tablet 05/26/18 Unknown Rx HYDROcodone/APAP 5-325 [[place] 1 each PO Q6HR PRN #14 tablet 09/03/18 Unknown Rx 5/325] Ondansetron [Zofran Odt] 4 mg PO Q8HR PRN #14 tab.rapdis 09/03/18 Unknown Rx Oseltamivir [Tamiflu] 75 mg PO BID #10 cap 09/03/18 Unknown Rx Azithromycin [Zithromax Z-STACY] 250 mg PO DAILY #6 tablet 10/02/18 Unknown Rx Prednisone [predniSONE 10 mg 10 mg PO .TAPER #1 tab.ds.pk 12/19/18 Unknown Rx (6-Day Pack, 21 Tabs)] amLODIPine 10 mg PO DAILY #30 tab 12/19/18 Unknown Rx Indomethacin 50 mg PO Q8H #15 capsule 01/27/19 Unknown Rx predniSONE [Deltasone] 10 mg PO QDAY #30 tab 01/27/19 Unknown Rx Indomethacin [Indocin] 25 mg PO Q8H PRN #30 capsule 02/08/19 Unknown Rx Prednisone [predniSONE 10 mg 10 mg PO .TAPER #1 tab.ds.pk 02/08/19 Unknown Rx (6-Day Pack, 21 Tabs)] Colchicine 0.6 mg PO BID PRN #15 capsule 04/14/19 Unknown Rx Indomethacin 50 mg PO Q8H #15 capsule 04/14/19 Unknown Rx Prednisone [predniSONE 10 mg 10 mg PO .TAPER #1 tab.ds.pk 04/14/19 Unknown Rx (6-Day Pack, 21 Tabs)] Hydrocortisone [Hydrocortisone 1 applicatio TP BID 7 Days #1 04/22/19 Unknown Rx 2.5% OINT] oint...g. diphenhydrAMINE [Benadryl CAP] 25 mg PO Q6HR PRN #14 capsule 04/22/19 Unknown Rx Colchicine 0.6 mg PO Q2HR #14 capsule 05/12/19 Unknown Rx predniSONE [Deltasone] 50 mg PO QDAY #5 tab 05/12/19 Unknown Rx ED Physical Exam - General Limitations: No Limitations General appearance: alert, in no apparent distress - Head Head exam: Present: atraumatic, normocephalic - Eye Eye exam: Present: normal appearance, PERRL, EOMI Pupils: Present: normal accommodation - ENT ENT exam: Present: normal exam, normal orophraynx, mucous membranes moist - Neck Neck exam: Present: normal inspection, full ROM. Absent: tenderness, meningismus, lymphadenopathy - Respiratory Respiratory exam: Present: normal lung sounds bilaterally. Absent: respiratory distress, wheezes, rales, accessory muscle use, decreased breath sounds, prolonged expiratory - Cardiovascular Cardiovascular Exam: Present: regular rate, normal rhythm. Absent: systolic murmur, diastolic murmur, rubs, gallop - GI/Abdominal GI/Abdominal exam: Present: soft, normal bowel sounds. Absent: guarding, rebound, hypoactive bowel sounds, organomegaly, mass, bruit, pulsatile mass - Rectal Rectal exam: Present: deferred - Extremities Exam Extremities exam: Present: normal inspection, normal capillary refill, other (pain to elbow and shoulders wtih mild redness) - Back Exam Back exam: Present: normal inspection. Absent: CVA tenderness (R), CVA tenderness (L), muscle spasm - Neurological Exam Neurological exam: Present: alert, oriented X3, CN II-XII intact - Psychiatric Psychiatric exam: Present: normal affect, normal mood - Skin Skin exam: Present: warm, dry, intact, normal color. Absent: rash ED Course Vital Signs 05/11/19 05/12/19 23:52 02:47 Temperature 98.5 F Pulse Rate 95 H Respiratory 18 16 Rate Blood Pressure 167/110 O2 Sat by Pulse 97 Oximetry Critical care attestation.: If time is entered above; I have spent that time in minutes in the direct care of this critically ill patient, excluding procedure time. ED Disposition Clinical Impression: Gout attack Disposition: DC/TX-[facility]/PSY UNIT Is pt being admited?: No Does the pt Need Aspirin: No Condition: Stable Instructions: Acute Gouty Arthritis (ED) Prescriptions: Colchicine 0.6 mg PO Q2HR #14 capsule predniSONE [Deltasone] 50 mg PO QDAY #5 tab Referrals: [facility] [Provider Group] - 2-3 Days Forms: Work/School Release Form(ED)
[2019-05-12 03:11] VITALS: BP 167/110
== END 2019-05-12 03:20 ==
LOC: ED 23:44
DX: M10.011 Idiopathic gout, right shoulder (principal); M10.012 Idiopathic gout, left shoulder; M10.021 Idiopathic gout, right elbow; M10.022 Idiopathic gout, left elbow; I10 Essential (primary) hypertension; G47.9 Sleep disorder, unspecified; Z79.899 Other long term (current) drug therapy; Z88.5 Allergy status to narcotic agent
CPT/HCPCS: 96372; 99282; J2930